=== PATIENT | male | born 1940 | race Caucasian/White ===

== ENCOUNTER 2022-08-17 22:49 | Inpatient (IN) | payer MEDICARE, OTHER, SELFPAY ==
--- NOTE | ~2022-08-17 | CT_ITS ---
EXAMINATION: CT cervical spine wo con DATE: 08/18/2022 00:10 INDICATION: Neck pain. TECHNIQUE: Computed tomography (CT) of the cervical spine was performed without intravenous contrast. Automated exposure control and iterative reconstruction technique were employed. The dose-length pro duct was 397.42 mGy-cm. COMPARISON: None FINDINGS: There is 7 degrees levocurvature of cervical spine. There is 2 mm retrolisthesis of C4 on C 5. There is mild chronic height loss of T1 and T2 vertebral bodies. There is severely decreased disc height at C4-C5 and moderately decreased disc height at C5-C6. The following disc levels are specific ally discussed: C2-C3: There is no uncovertebral joint osteoarthritis. There is moderate bilateral facet joint osteoa rthritis. There is mild right neural foraminal stenosis. There is no central canal stenosis. C3-C4: There is severe bilateral uncovertebral joint osteoarthritis. There is severe right and mild l eft facet joint osteoarthritis. There is mild bilateral neural foraminal stenosis. There is mild cent ral canal stenosis. C4-C5: There is severe bilateral uncovertebral joint osteoarthritis. There is moderate bilateral face t joint osteoarthritis. There is mild right and moderate left neural foraminal stenosis. There is mil d central canal stenosis. C5-C6: There is severe right and mild left uncovertebral joint osteoarthritis. There is moderate righ t and mild left facet joint osteoarthritis. There is mild bilateral neural foraminal stenosis. There is mild central canal stenosis. C6-C7: There is mild bilateral uncovertebral joint osteoarthritis. There is moderate and mild left fa cet joint osteoarthritis. There is mild bilateral neural foraminal stenosis. There is mild central ca nal stenosis. C7-T1: There is no uncovertebral joint osteoarthritis. There is severe right and moderate left facet joint osteoarthritis. There is mild bilateral neural foraminal stenosis. There is no central canal st enosis. IMPRESSION: 1. No acute fracture. 2. Severe cervical spondylosis. Reviewed, dictated and finalized at location B.
--- NOTE | ~2022-08-17 | US_ITS ---
EXAMINATION: US venous doppler [facility] DATE: 08/18/2022 13:02 INDICATION: Lower limb edema. TECHNIQUE: Grayscale ultrasound images without and with compression and Doppler ultrasound images of the bilateral lower extremity veins were obtained. COMPARISON: None. FINDINGS: The visualized portions of right common femoral vein, profunda (deep) femoral vein, femoral vein, pop liteal vein, peroneal veins, posterior tibial veins, and greater saphenous vein outflow are patent. The visualized portions of left common femoral vein, profunda femoral vein, femoral vein, popliteal v ein, peroneal veins, posterior tibial veins, and greater saphenous vein outflow are patent. IMPRESSION: 1. No deep venous thrombosis. Reviewed, dictated and finalized at location B.
--- NOTE | ~2022-08-17 | XR_ITS ---
EXAMINATION: XR chest 1V portable DATE: 08/18/2022 01:17 INDICATION: Syncopal episode. Weakness. TECHNIQUE: frontal view of the chest was obtained. COMPARISON: None FINDINGS: The lungs are clear with no focal airspace opacities, pulmonary edema, pleural effusion or pneumothor ax. The cardiomediastinal silhouette is normal. Several old healed bilateral rib fractures. IMPRESSION: 1. No acute cardiopulmonary disease. Reviewed, dictated and finalized at location A.
--- NOTE | ~2022-08-17 | CT_ITS ---
EXAMINATION: CT brain wo con DATE: 08/18/2022 00:10 INDICATION: Syncope. Head injury. TECHNIQUE: Computed tomography (CT) of the head was performed without intravenous contrast. Sagittal and coronal reconstructions were performed. The mA was adjusted according to patient size. Iterative reconstruction technique was employed. The dose-length product was 605.33 mGy-cm. COMPARISON: None FINDINGS: Moderate-sized right parietal scalp hematoma. No fracture. Small focus of high attenuation in the lef t cerebellar hemisphere compatible for dystrophic calcification versus tiny intraparenchymal versus s ubarachnoid hemorrhage. No acute infarction or abnormal extra axial fluid collection. There is modera te scattered white matter hypoattenuation consistent with chronic small vessel ischemic disease. Symm etric prominence of the sulci consistent with moderate age-appropriate diffuse cerebral volume loss. Ventricles are normal and symmetric. No mass/mass effect. The orbits, paranasal sinuses and mastoid a ir cells are normal. 14 x 7 mm fluid attenuation subcutaneous nodule superolateral to the right orbit with fluid attenuation most likely sebaceous cyst. Intracranial calcified cerebral atherosclerosis i s noted. IMPRESSION: 1. Small focus of increased attenuation in the left cerebellar hemisphere equivocal for either dystro phic calcification versus intraparenchymal or subarachnoid hemorrhage. Findings were discussed with Aleshia Emmanuel, the nurse caring for the patient, at 8:05 AM. 2. Age-related changes including moderate diffuse volume loss and moderate scattered white matter hyp oattenuation consistent with chronic small vessel ischemic disease. Reviewed, dictated and finalized at location A. IMPRESSION: 1. Small focus of increased attenuation in the left cerebellar hemisphere equiv ocal for either dystrophic calcification versus intraparenchymal or subarachnoi d hemorrhage. Findings were discussed with Mayra Emmanuel, the nurse caring for the patient, at 8:05 AM. 2. Age-related changes including moderate diffuse volume loss and moderate scat tered white matter hypoattenuation consistent with chronic small vessel ischemi c disease.
--- NOTE | ~2022-08-17 | MR_ITS ---
EXAMINATION: MR brain/brain stem wo con DATE: 08/18/2022 12:52 INDICATION: Syncope. Left cerebellar subarachnoid hemorrhage. TECHNIQUE: Magnetic resonance imaging (MRI) of the brain and brainstem was performed without intraven ous contrast. COMPARISON: Head CT 08/18/2022 FINDINGS: There is no intracranial hemorrhage, acute infarction, or abnormal intracranial mass lesion . There are scattered areas of nonspecific increased T2-weighted signal intensity in the cerebral whi te matter. The ventricles are normal in size. The mastoid air cells are normal. The paranasal sinuses are clear. There are likely changes of ocular lens replacement surgeries. IMPRESSION: 1. No intracranial hemorrhage. 2. Moderate nonspecific cerebral white matter disease, which likely represents chronic small vessel i schemic disease. Reviewed, dictated and finalized at location B. IMPRESSION: 1. No intracranial hemorrhage. 2. Moderate nonspecific cerebral white matter disease, which likely represents chronic small vessel ischemic disease.
[2022-08-17 22:56] VITALS: BP 156/94; PULSE 123; RESP 18; TEMP 36.4; O2SAT 100
[2022-08-17 23:07] LABS: Glucose Point of Care 292 mg/dl (65-105)
--- NOTE | 2022-08-17 23:16 | ECG_ITS ---
Measurements Intervals [place] Rate: 113 P: 56 MS: 169 QRS: -49 QRSD: 129 T: 107 QT: 331 QTc: 455 Interpretive Statements SINUS TACHYCARDIA LEFT ANTERIOR FASCICULAR BLOCK [QRS AXIS <= -45, QR IN I, RS IN II] LEFT VENTRICULAR HYPERTROPHY AND ST-T CHANGE [VOLTAGE CRITERIA PLUS ST/T ABNORMALITY] POSSIBLE ANTERIOR MYOCARDIAL INFARCTION , OF INDETERMINATE AGE [30 ms Q WAVE IN V3/V4, OR R < 0.2 mV IN V4] ABNORMAL ECG NO PREVIOUS ECG AVAILABLE FOR COMPARISON Electronically Signed On 08-18-2022 14:06:37 CDT by Hollis Ahmadi M.D.
--- NOTE | 2022-08-17 23:57 | ED.GENADULT ---
HPI - General Adult General Chief complaint: Weakness Stated complaint: fall Time Seen by Provider: 08/17/22 23:22 History of Present Illness HPI narrative: 82-year-old male history of diabetes with neuropathy, hypertension, CHF, hyperlipidemia and BPH to the emergency room for evaluation of a head injury sustained from a fall after syncopal episode. Patient states he went to the kitchen to grab a late night snack, when he had a syncopal episode and fell, striking his head on the counter. According to his patient experienced positive LOC for 5 minutes. Patient was confused for several minutes following the injury. Presently patient is alert and oriented x4. Reports that he experienced a ground-level fall last week when he tripped walking into a doorway. Patient states he struck his head on the concrete then as well. Patient also complains of lower extremity edema, left greater than the right. States when he fell last week he sustained several abrasions to his lower extremities. 1 abrasion began draining purulent drainage. Left leg is erythematous and warm to the touch Related Data Allergies Allergy/AdvReac Type Severity Reaction Status Date / Time No Known Allergies Allergy Verified 08/17/22 22:55 Review of Systems Review of Systems: CONSTITUTIONAL: Denies fever, chills, or sweats. EYES: Denies visual changes, redness, or discharge. ENT: Denies rhinorrhea, congestion, sore throat, or otalgia. CARDIOVASCULAR: Denies chest pain, palpitations, or edema. RESPIRATORY: Denies cough or dyspnea. GASTROINTESTINAL: Denies abdominal pain, nausea, vomiting, or diarrhea. GENITOURINARY: Denies dysuria or hematuria. SKIN: Denies rash or itching. MUSCULOSKELETAL: Denies back pain, joint pain, or myalgia. NEUROLOGIC: Denies headache, numbness, dizziness, or weakness. PSYCHIATRIC: Denies anxiety or depression. [facility] Past Medical History Medical History (Updated 08/18/22 @ 02:43 by Hollis Woods APRN) BPH (benign prostatic hyperplasia) CHF (congestive heart failure) Diabetes type 2, uncontrolled Hyperlipidemia Hypertension Exam Narrative: GENERAL: Well-appearing, well-nourished, no physical limitations, and in no acute distress. HEAD: Normocephalic, ecchymosis in various stages of healing to the right brow EYES: Conjunctivae normal, PERRLA and EOMI. ENT: External nose normal, Nares clear, no rhinorrhea or epistaxis. Mucous membranes moist. Oropharynx without tonsillar hypertrophy exudate or other lesions. External ears normal, bilateral TMs normal bilaterally NECK: Supple. CHEST: Decreased chest breath sounds. No respiratory distress. HEART: Tachycardic with a regular rhythm. No murmur heard. Normal peripheral pulses. ABDOMEN: Soft, nontender, nondistended, normal active bowel sounds. BACK: No midline cervical/thoracic/lumbar tenderness, step-offs, bony abnormality; FROM EXTREMITIES: Normal range of motion. Bilateral lower extremity pitting edema +3/+4. LLE: Abrasion to anterior vivas, with purulent drainage. Extremity erythematous warm to touch SKIN: Warm, dry, no rash. No noted wounds NEURO: No focal deficits. Alert and oriented x3. MAEW. CN's II-XI intact bilaterally PSYCH: Cooperative. Normal mood and affect. Course Vital Signs Vital signs: Vital Signs Temperature 36.4 C L 08/17/22 22:56 Pulse Rate 123 H 08/17/22 22:56 Respiratory Rate 18 08/17/22 22:56 Blood Pressure 156/94 H 08/17/22 22:56 Pulse Oximetry 100 08/17/22 22:56 Oxygen Delivery Room Air 08/17/22 22:56 Temperature 36.4 C L 08/17/22 22:56 Pulse Rate 88 08/18/22 02:16 Respiratory Rate 20 08/18/22 02:16 Blood Pressure 157/84 H 08/18/22 02:16 Pulse Oximetry 98 08/18/22 02:16 Oxygen Delivery Room Air 08/17/22 22:56 Medical Decision Making Vital Signs Vital Signs: Vital Signs Temperature 36.4 C L 08/17/22 22:56 Pulse Rate 123 H 08/17/22 22:56 Respiratory Rate 18 08/17/22 22:56 Blood Pressure 156/9
[2022-08-18] VITALS (19 sets, daily range): BP systolic 134–196; BP diastolic 50–102; PULSE 68–130; RESP 12–20; TEMP 36.2–36.9; O2SAT 93–100; BMI 38.8
--- NOTE | 2022-08-18 | ECHO_ITS ---
Patient Info Name: Messi Smalls Age: 82 years : 1940 Gender: Male Ht: 60 in Wt: 198 lbs BSA: 2.00 m2 HR: 106 bpm BP: 138 / 77 mmHg Heart Rhythm: Sinus Rhythm Exam Date: 08/18/2022 10:31 AM Exam Location: [facility] Patient Status: Outpatient Admit Date: 08/18/2022 Staff Ordering Physician: aKlina Valdivia APRN Order Manager: Mauro Stockton RDCS, RT Attending Provider: Nancy Lawrence DO Referring Physician: Skip PARMAR; Exam Type: CA echo doppler color flow Study Info Indications R55 - Syncope and collapse Complete two-dimensional, color flow and Doppler transthoracic echocardiogram is performed. Strain analysis performed. Summary 1. Complete two-dimensional, color flow and Doppler transthoracic echocardiogram is performed. 2. Left ventricular chamber dimension is mildly enlarged. 3. Left ventricular systolic function is normal, estimated at 60-65%. 4. There is moderately increased left ventricular wall thickness. 5. Left ventricular septal wall motion is abnormal with septal motion related to bundle branch block. 6. The left ventricular diastolic function is grade I diastolic dysfunction. 7. Global longitudinal strain is abnormal at -14 %. 8. The basal inferior wall, and mid inferior wall are hypokinetic. 9. Left atrial chamber dimension is moderately enlarged. 10. There is mild mitral valve regurgitation. 11. There is mild tricuspid valve regurgitation. 12. Moderate pulmonary hypertension, estimated pulmonary arterial systolic pressure is 52 mmHg. Left Ventricle Left ventricular chamber dimension is mildly enlarged. Left ventricular systolic function is normal, estimated at 60-65%. There is moderately increased left ventricular wall thickness. Left ventricular septal wall motion is abnormal with septal motion related to bundle branch block. The left ventricular diastolic function is grade I diastolic dysfunction. E/e' 6.2 is abnormal. Global longitudinal strain is abnormal at -14 %. The basal inferior wall, and mid inferior wall are hypokinetic. All other pagan appear normal. Right Ventricle Right ventricular chamber dimension is normal. Right ventricular systolic function is normal. Left Atria Left atrial chamber dimension is moderately enlarged. Right Atria Right atrial chamber dimension is normal. Atrial Septum Intact interatrial septum visualized by color flow imaging. Aortic Valve The aortic valve is trileaflet. There is mild aortic valve sclerosis. There is no aortic valve stenosis. There is trace aortic valve regurgitation. Pulmonic Valve The pulmonic valve is normal. There is no pulmonic valve stenosis. There is trace pulmonic regurgitation. Mitral Valve The mitral valve has thickened leaflets. There is no mitral valve stenosis. There is mild mitral valve regurgitation. Tricuspid Valve The tricuspid valve leaflets are normal. There is no significant tricuspid valve stenosis. There is mild tricuspid valve regurgitation. Moderate pulmonary hypertension, estimated pulmonary arterial systolic pressure is 52 mmHg. Pericardium/Pleural The pericardium appears normal. There is trivial pericardial effusion. Inferior Vena Cava Normal inferior vena cava with <50% collapse upon inspiration consistent with elevated right atrial pressure, 10 mmHg. Aorta The aortic root size at the sinus of Valsalva is normal. Left Ventricular Outflow Tract
[2022-08-18 00:24] LABS: Basophils Absolute Auto 0.1 K/mm3 (0.0-0.1); Basophils Percent Auto 0.5 % (0.2-1.2); Eosinophils Absolute Auto 0.1 K/mm3 (0-0.3); Eosinophils Percent Auto 0.8 % (0-4.4); Hematocrit 31.5 % (42.0-52.0); Hemoglobin 10.9 g/dL (14.0-18.0); Immature Granulocyte Percent A 1.6 % (0-0.5); Lymphocytes Absolute Auto 1.04 K/mm3 (0.9-3.2); Lymphocytes Percent Auto 8.1 % (18.3-44.2); Mean Corpuscular HGB Conc 34.6 g/dl (32-36); Mean Corpuscular Hemoglobin 29.6 pg (26-34); Mean Corpuscular Volume 85.6 fl (80-100); Mean Platelet Volume 10.6 fl (7.4-10.4); Monocytes Percent Auto 7.5 % (2.6-8.5); Neutrophils Absolute Auto 10.4 K/mm3 (1.3-6.7); Neutrophils Percent Auto 81.5 % (45.5-73.1); Platelet Count Result 278 k/mm3 (150-375); Red Blood Count 3.68 M/mm3 (4.6-6.20); Red Cell Distribution Width 12.8 % (11.5-14.5); White Blood Count 12.8 K/mm3 (4.5-10.0)
[2022-08-18 00:32] LABS: INR 1.2; Prothrombin Time 14.5 Seconds (11.1-14.7)
[2022-08-18 00:33] LABS: Partial Thromboplastin Time 37.6 SECONDS (22.3-36.8)
[2022-08-18 00:40] LABS: Alanine Aminotransferase 17 U/L (6-50); Albumin Level 3.7 g/dL (3.5-5.1); Alkaline Phosphatase 97 U/L (38-126); Anion Gap 11 mmol/L (8-16); Aspartate Amino Transferase 17 U/L (17-59); Bilirubin,Total 0.8 mg/dL (0.2-1.3); Blood Urea Nitrogen 26 mg/dL (9-20); Calcium 9.3 mg/dL (8.4-10.2); Carbon Dioxide 21 mmol/L (22-30); Chloride 104 mmol/L (98-107); Estimated CRCL calculation 44 ml/min; Estimated Glomerular Filt Rate > 60; Glucose 318 mg/dL (65-110); Potassium 4.5 mmol/L (3.4-5.0); Sodium 136 mmol/L (137-145)
[2022-08-18 00:45] LABS: NT Pro B Type Natriuretic Pept 2730 pg/mL (5-100)
[2022-08-18 01:06] LABS: Troponin I 0.037 ng/mL (0.000-0.034)
[2022-08-18] MEDS: METOPROLOL TARTRATE INJ 5 MG/5 ML VIAL IV PUSH ×2 (01:06→17:39)
[2022-08-18] MEDS: FUROSEMIDE INJ 40 MG/4 ML VIAL IV PUSH (01:06)
--- NOTE | 2022-08-18 01:16 | ECG_ITS ---
Measurements Intervals [place] Rate: 91 P: 77 NV: 174 QRS: -45 QRSD: 138 T: 65 QT: 365 QTc: 451 Interpretive Statements SINUS RHYTHM INTRAVENTRICULAR CONDUCTION DELAY [130+ ms QRS DURATION] LEFT VENTRICULAR HYPERTROPHY POSSIBLE SEPTAL MYOCARDIAL INFARCTION , OF INDETERMINATE AGE [30 ms Q WAVE IN V1/V2] LEFT ANTERIOR FASCICULAR BLOCK ABNORMAL ECG COMPARED TO ECG 08/17/2022 23:18:06 SINUS RHYTHM NOW PRESENT INTRAVENTRICULAR CONDUCTION DELAY NOW PRESENT Electronically Signed On 08-18-2022 14:07:54 CDT by Hollis Ahmadi M.D.
--- NOTE | 2022-08-18 01:17 | PC.NURSE ---
called [facility] for transfer. No telebeds available.
[2022-08-18] MEDS: INSULIN HUMAN REGULAR (*BKC) 100 UNITS/ML 6 UNITS SUB-Q (01:22)
[2022-08-18 01:40] LABS: Lactic Acid Reflex 1.4 mmol/L (0.7-2.0)
[2022-08-18 02:06] LABS: SARS-CoV-2 RNA PCR Negative
[2022-08-18] MEDS: hydrALAZINE HCL 20 MG/ML VIAL 10 MG IV PUSH (02:26)
[2022-08-18 02:57] LABS: Add Urine Microscopic? YES; Appearance Urine Clear (Clear); Bilirubin Urine Negative (Negative); Blood Urine Negative (Negative); Color Urine Yellow (Yellow); Glucose Urine UA 3+ mg/dL (Negative); Ketones Urine Trace mg/dL (Negative); Leukocyte Esterase Ur Negative LEU/UL (Negative); Nitrate Urine Negative (Negative); Protein Urine 2+ mg/dL (Negative); RBC Urine 0-2 /hpf (0-2); Specific Grav Ur 1.012 (1.001-1.035); Squamous Epithelial Cell Urine Rare /hpf (Few); Urobilinogen Urine Negative mg/dL (<2.0); WBC Urine 0-3 /hpf
[2022-08-18 04:14] LABS: Troponin I 0.043 ng/mL (0.000-0.034)
--- NOTE | 2022-08-18 04:14 | ADMGEN ---
This patient, Messi Smalls, was admitted to IMU Room 206-02 at 0414. Patient/family oriented to hospital policies and general routines including ID bracelet, bed and alarms, visiting hours, pain management, procedures, bathroom and other care routines, personal items, smoking policy, room service/diet, and visiting hours. Information on how to activate the Rapid Response Team has been discussed. Patient/Family are encouraged to report perceived risks to care and to ask questions if they do not understand what they are told or what they should do.
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
[2022-08-18 08:40] LABS: Hemoglobin A1C 7.3 % (<5.7)
[2022-08-18 09:16] LABS: Glucose Point of Care 209 mg/dl (65-105)
[2022-08-18 09:32] LABS: Cholesterol 115 mg/dL (0-200); HDL Direct 33 mg/dL; Triglycerides 97 mg/dL (<150)
[2022-08-18 09:43] LABS: LDL Cholesterol Direct 57 mg/dL
[2022-08-18] MEDS: ROSUVASTATIN 10 MG TABLET 20 MG PO (09:48)
[2022-08-18] MEDS: VALSARTAN 160 MG TABLET 320 MG PO (09:48)
[2022-08-18] MEDS: metroNIDAZOLE 250 MG TABLET 500 MG PO ×3 (09:48→21:18)
[2022-08-18] MEDS: ASCORBIC ACID 500 MG TABLET PO (09:48)
[2022-08-18] MEDS: busPIRone HCL 10 MG TABLET PO ×2 (09:49→16:15)
[2022-08-18] MEDS: amLODIPine BESYLATE 5 MG TABLET PO (09:50)
[2022-08-18] MEDS: INSULIN ASPART (*BKC) 100 UNITS/ML SUB-Q ×3 (10:01→17:30)
--- NOTE | 2022-08-18 10:53 | PM.CNGS ---
Assessment and Plan Assessment and plan (1) Cellulitis and abscess of leg: Code(s): L03.119 - Cellulitis of unspecified part of limb; L02.419 - Cutaneous abscess of limb, unspecified Status: Acute Assessment and Plan: This is the reason for our consultation. Left lower leg cellulitis and left lower leg wound. Wound care was consulted earlier today and evaluated the patient. They were able to express some clot material concerning for possibly a small hematoma in this area. The overlying skin is a dark black eschar and there was reportedly some purulent drainage expressed this morning and cultured. This could be the source of his cellulitis, although the wound is very small. Discussed treatment options with the patient and recommended that we proceed with a bedside incision and drainage of the abscess under local anesthetic with possible debridement of the eschar. If there is any remaining clot, this can be evacuated as well. If there is purulent drainage during the procedure, then we will plan to get a deeper wound culture. Description of the procedure, risks, benefits, alternatives, and expected wound care were discussed with the patient in detail. He agrees to proceed. (2) Sepsis: Qualifiers: Sepsis acute organ dysfunction status: without acute organ dysfunction Sepsis type: sepsis due to unspecified organism Qualified Code(s): A41.9 - Sepsis, unspecified organism Code(s): A41.9 - Sepsis, unspecified organism Status: Acute Assessment and Plan: Criteria met on admission with leukocytosis, tachycardia, and known source of infection. Could be related to the left lower leg cellulitis. Continue broad-spectrum IV antibiotics. No blood cx drawn prior to starting IV antibiotics. Hospitalist plans to get blood cx if he becomes febrile. See plan above. (3) Elevated troponin: Code(s): R77.8 - Other specified abnormalities of plasma proteins Status: Acute (4) Syncope and collapse: Code(s): R55 - Syncope and collapse Status: Acute (5) Diabetes type 2, uncontrolled: Qualifiers: Glycemic state: with hyperglycemia Qualified Code(s): E11.65 - Type 2 diabetes mellitus with hyperglycemia Status: Acute Assessment and Plan: Will need adequate glycemic control for wound healing. Management per Hospitalist. (6) CHF (congestive heart failure): Code(s): I50.9 - Heart failure, unspecified Status: Acute (7) BPH (benign prostatic hyperplasia): Qualifiers: Lower urinary tract symptom presence: symptoms absent Qualified Code(s): N40.0 - Benign prostatic hyperplasia without lower urinary tract symptoms Code(s): N40.0 - Benign prostatic hyperplasia without lower urinary tract symptoms Status: Chronic (8) Hypertension: Qualifiers: Hypertension type: primary hypertension Qualified Code(s): I10 - Essential (primary) hypertension Code(s): I10 - Essential (primary) hypertension Status: Chronic (9) Hyperlipidemia: Qualifiers: Hyperlipidemia type: mixed hyperlipidemia Qualified Code(s): E78.2 - Mixed hyperlipidemia Code(s): E78.5 - Hyperlipidemia, unspecified Status: Chronic (10) Obesity (BMI 30-39.9): Code(s): E66.9 - Obesity, unspecified Status: Acute Plan I have discussed the patient's case and plan of care with Dr. Reich. Thank you for allowing us to see the patient in consultation and we will continue to follow along with you. History of Present Illness Consult details Consult date: 08/18/22 Reason for consult: other (Left lower leg wound) Requesting physician: Kalina Valdivia, MELISSA Narrative: This is an 82-year-old man with type 2 diabetes mellitus, hypertension, CHF, hyperlipidemia, and BPH. He presented to the ER after a syncopal episode at home. He has a history of multiple falls in the past. He reports [facility] 11 days ago [facility]
[2022-08-18 11:35] LABS: Vitamin D 25 Hydroxy 26.1 ng/mL
[2022-08-18 12:35] LABS: Glucose Point of Care 339 mg/dl (65-105)
--- NOTE | 2022-08-18 16:01 | P.OP_ITS ---
Procedure Note - Detailed Date of Procedure 08/18/22 Pre-op Diagnosis Left lower leg abscess Post-op Diagnosis Same Procedure Performed Incision and sharp excisional debridement of left lower leg wound including skin and subcutaneous tissue, measuring 1 cm x 1 cm x 1 cm Surgeon ALIZA Hewitt Biology Department Chair MAURA Castillo student Anesthesia Local (2% lidocaine with epi) Indications Left lower leg abscess with overlying eschar and surrounding cellulitis Findings After making an incision over the fluctuant area and debriding the overlying eschar, there was no significant purulent drainage noted, but a cavity where likely the previous blood clot that was expressed this morning was lying. No further pockets of pus or significant tracking noted. Description of Procedure The patient was placed in the supine position in the bed. His left leg was flexed and laid laterally on the side for better visualization of the medial wound. Following this, sterile prep was carried out over the wound with iodine swabs. The area was draped and local anesthetic with 2% lidocaine with epinephrine was infiltrated directly over the area of the suspected abscess formation and the edges of the eschar. I used a scissors to extend the opening in the center of the eschar. There was no purulent drainage flowing. I then used a pickup and scissors to carry out debridement of the black eschar down to subcutaneous tissue. After this was completely excised, there was a remaining circular open wound that had about 2 cm of undermining distally down the leg. With probing, there were no pus pockets or any purulent drainage noted after debridement. Therefore, no additional wound culture was taken. With inspection of the wound, there was no bleeding or oozing. I then measured the area that was debrided, which was 1 cm x 1 cm x 1 cm. No deeper necrotic tissue noted. I then packed the wound with 1 iodoform packing that was cut in half in width to fit the wound. The nurse was unable to get small packing at this time. We then covered with 4x4 gauze and medipore tape. Estimated Blood Loss 0 Drains No Packing Yes Pathology None sent Complications No immediate complications Condition Stable Disposition No change [facility] Billing Surgery - Charge Forward: Surgery Billing
[2022-08-18 16:05] LABS: Procalcitonin 0.2 ng/mL
[2022-08-18 17:26] LABS: Glucose Point of Care 266 mg/dl (65-105)
[2022-08-18 20:37] LABS: Glucose Point of Care 305 mg/dl (65-105)
[2022-08-18] MEDS: HEPARIN SODIUM 5,000 UNITS/ML VIAL 5000 UNITS SUB-Q (21:17)
[2022-08-18] MEDS: INSULIN GLARGINE (*BKC) 100 UNITS/ML 10 UNITS SUB-Q (21:17)
[2022-08-18] MEDS: FINASTERIDE 5 MG TABLET PO (21:18)
[2022-08-18] MEDS: TAMSULOSIN HCL 0.4 MG CAPSULE PO (21:18)
[2022-08-19] VITALS (14 sets, daily range): BP systolic 127–171; BP diastolic 69–86; PULSE 80–110; RESP 17–22; TEMP 36.1–37.5; O2SAT 95–100
[2022-08-19] MEDS: METOPROLOL TARTRATE INJ 5 MG/5 ML VIAL IV PUSH (03:53)
[2022-08-19] MEDS: metroNIDAZOLE 250 MG TABLET 500 MG PO ×3 (05:27→21:45)
[2022-08-19 05:42] LABS: Basophils Absolute Auto 0.1 K/mm3 (0.0-0.1); Basophils Percent Auto 0.6 % (0.2-1.2); Eosinophils Absolute Auto 0.3 K/mm3 (0-0.3); Eosinophils Percent Auto 3.5 % (0-4.4); Hematocrit 28.5 % (42.0-52.0); Hemoglobin 9.9 g/dL (14.0-18.0); Immature Granulocyte Absolute 0.06 K/mm3 (0.00-0.031); Immature Granulocyte Percent A 0.7 % (0-0.5); Lymphocytes Absolute Auto 0.93 K/mm3 (0.9-3.2); Lymphocytes Percent Auto 10.8 % (18.3-44.2); Mean Corpuscular HGB Conc 34.7 g/dl (32-36); Mean Corpuscular Hemoglobin 29.2 pg (26-34); Mean Corpuscular Volume 84.1 fl (80-100); Mean Platelet Volume 10.6 fl (7.4-10.4); Monocytes Absolute Auto 0.7 K/mm3 (0.1-0.6); Neutrophils Absolute Auto 6.6 K/mm3 (1.3-6.7); Neutrophils Percent Auto 76.4 % (45.5-73.1); Platelet Count Result 243 k/mm3 (150-375); Red Blood Count 3.39 M/mm3 (4.6-6.20); Red Cell Distribution Width 12.7 % (11.5-14.5); White Blood Count 8.6 K/mm3 (4.5-10.0)
[2022-08-19 05:56] LABS: Anion Gap 7 mmol/L (8-16); Blood Urea Nitrogen 22 mg/dL (9-20); Calcium 8.8 mg/dL (8.4-10.2); Carbon Dioxide 22 mmol/L (22-30); Chloride 101 mmol/L (98-107); Estimated CRCL calculation 52 ml/min; Estimated Glomerular Filt Rate > 60; Glucose 255 mg/dL (65-110); Potassium 3.6 mmol/L (3.4-5.0); Sodium 130 mmol/L (137-145)
[2022-08-19 06:59] LABS: Folic Acid 9.1 ng/mL (2.76->20)
[2022-08-19 08:25] LABS: Glucose Point of Care 255 mg/dl (65-105)
[2022-08-19] MEDS: INSULIN ASPART (*BKC) 100 UNITS/ML SUB-Q ×3 (08:48→17:03)
[2022-08-19] MEDS: ROSUVASTATIN 10 MG TABLET 20 MG PO (08:49)
[2022-08-19] MEDS: HEPARIN SODIUM 5,000 UNITS/ML VIAL 5000 UNITS SUB-Q ×2 (08:49→21:45)
[2022-08-19] MEDS: VALSARTAN 160 MG TABLET 320 MG PO (08:49)
[2022-08-19] MEDS: ASCORBIC ACID 500 MG TABLET PO (08:49)
[2022-08-19] MEDS: busPIRone HCL 10 MG TABLET PO ×2 (08:49→17:03)
[2022-08-19] MEDS: ASPIRIN 81 MG ENTERIC TABLET PO (08:49)
[2022-08-19] MEDS: amLODIPine BESYLATE 5 MG TABLET PO (08:49)
[2022-08-19 12:20] LABS: Glucose Point of Care 350 mg/dl (65-105)
--- NOTE | 2022-08-19 14:15 | PM.IMPN ---
Progress Note: A&P Assessment and Plan (1) Syncope and collapse: Code(s): R55 - Syncope and collapse Status: Acute Assessment and Plan: Patient presented to the ED following a syncopal episode with head injury and LOC of 5 minutes at least. He had prior right frontal/temporal hematoma from previous fall. Telemetry with no arrhythmia Orthostatic vitals borderline positive- hold diuretics. Likely due to orthostasis TTE 08/18/2022 with EF 60-65% chronic left bundle branch block grade 1 diastolic dysfunction moderate pulmonary hypertension CT head with questionable left cerebellar SAH. MRI brain negative for intracranial hemorrhage. Neuro checks Q4 hours. TSH 2.640 Vitamin D 25-OH 26.1 PT/OT to evaluate (2) Sepsis: Qualifiers: Sepsis type: sepsis due to unspecified organism Sepsis acute organ dysfunction status: without acute organ dysfunction Qualified Code(s): A41.9 - Sepsis, unspecified organism Code(s): A41.9 - Sepsis, unspecified organism Status: Acute Assessment and Plan: HR 123 bpm, WBC 1.28 with bandemia, increased warmth, redness, swelling, wound with purulent discharge. Lactic acid 1.4. UA negative. CXR negative. ED concerns for volume overload and given 40 mg IV lasix x1. Hold IV resuscitation for now. Monitor hemodynamics. SBP 180s. Continue antibiotics for cellulitis as below. On IV vancomycin and IV cefepime and metronidazole Check procalcitonin. Blood cultures not drawn in ED and IV antibiotics already given. Order blood cultures x2 if temp>100.5F. (3) Cellulitis and abscess of leg: Code(s): L03.119 - Cellulitis of unspecified part of limb; L02.419 - Cutaneous abscess of limb, unspecified Status: Acute Assessment and Plan: LLE with increased edema, redness, hot to touch, medial area below knee with purulent discharge. Wound RN consulted and appreciate recommendations. General surgery consulted for evaluation for bedside I&D and appreciate assistance. Start broad-spectrum antibiotics- Cefepime IV 2 grams Q12, Vancomycin pharmacy dosed, metronidazole 500 mg PO Q8 hours. Topical mupirocin ointment daily per wound care. Wound culture with Staph aureus moderate growth sensitivity pending Venous doppler negative for DVT (4) Diabetes type 2, uncontrolled: Qualifiers: Glycemic state: with hyperglycemia Qualified Code(s): E11.65 - Type 2 diabetes mellitus with hyperglycemia Status: Acute Assessment and Plan: Blood glucose 318 in ED. He reports taking his oral antidiabetic medications prior to admission. Home glucose reported to be 140 to 160s typically. check A1c Accu-checks AC/HS with moderate sliding scale and hypoglycemia protocol Hold oral metformin and glipizide Start lantus 10 units at HS while inpatient. Goal glucose<200 mg/dL for wound healing. H/O neuropathy - check B12 level. (5) Elevated troponin: Code(s): R77.8 - Other specified abnormalities of plasma proteins Status: Acute Assessment and Plan: Troponin 0.027, 0.043, 0.060. No c/o chest pain. +syncope prior to admission. EKG with sinus tachycardia left anterior fascicular block, T-wave inversion 1 and aVL. Check Echocardiogram Troponin elevation is minimal and likely secondary to demand ischemia from sepsis and tachycardia. Monitor telemetry. Resume aspirin as MRI brain negative for acute ICH Consult cardiology if patient develops chest pain, arrhythmia or echo is abnormal. Obtain outpatient cardiology records. (6) Hypertension: Qualifiers: Hypertension type: primary hypertension Qualified Code(s): I10 - Essential (primary) hypertension Code(s): I10 - Essential (primary) hypertension Status: Chronic Assessment and Plan: Chronic, stable. continue amlodipine and valsartan at home doses. PRN metoprolol for sustained HR>120, SBP>160 or DBP>110 (7) BPH (benign prostatic hyperplasia):
[2022-08-19 16:18] LABS: Glucose Point of Care 325 mg/dl (65-105)
[2022-08-19] MEDS: INSULIN ASPART (*BKC) 100 UNITS/ML 6 UNITS SUB-Q (17:04)
--- NOTE | 2022-08-19 17:07 | PM.PNGS ---
Progress Note: A&P Assessment and Plan (1) Syncope and collapse: Code(s): R55 - Syncope and collapse Status: Acute Assessment and Plan: Patient presented to the ED following a syncopal episode with head injury and LOC of 5 minutes at least. He had prior right frontal/temporal hematoma from previous fall. Telemetry with no arrhythmia Orthostatic vitals borderline positive- hold diuretics. Likely due to orthostasis TTE 08/18/2022 with EF 60-65% chronic left bundle branch block grade 1 diastolic dysfunction moderate pulmonary hypertension CT head with questionable left cerebellar SAH. MRI brain negative for intracranial hemorrhage. (2) Sepsis: Qualifiers: Sepsis acute organ dysfunction status: without acute organ dysfunction Sepsis type: sepsis due to unspecified organism Qualified Code(s): A41.9 - Sepsis, unspecified organism Code(s): A41.9 - Sepsis, unspecified organism Status: Acute Assessment and Plan: . (3) Cellulitis and abscess of leg: Code(s): L03.119 - Cellulitis of unspecified part of limb; L02.419 - Cutaneous abscess of limb, unspecified Status: Acute Assessment and Plan: LLE with increased edema, redness, hot to touch, medial area below knee with purulent discharge. Wound RN consulted and appreciate recommendations. General surgery consulted for evaluation for bedside I&D and appreciate assistance. Start broad-spectrum antibiotics- Cefepime IV 2 grams Q12, Vancomycin pharmacy dosed, metronidazole 500 mg PO Q8 hours. Topical mupirocin ointment daily per wound care. Wound culture with Staph aureus moderate growth sensitivity pending Venous doppler negative for DVT Will order SCD hose see if patient can tolerate having this on the leg. This may help push some edema/venous flow up the leg while he is in bed. Also elevate foot of bed. (4) Diabetes type 2, uncontrolled: Qualifiers: Glycemic state: with hyperglycemia Qualified Code(s): E11.65 - Type 2 diabetes mellitus with hyperglycemia Status: Acute (5) Elevated troponin: Code(s): R77.8 - Other specified abnormalities of plasma proteins Status: Acute Assessment and Plan: Troponin 0.027, 0.043, 0.060. No c/o chest pain. +syncope prior to admission. EKG with sinus tachycardia left anterior fascicular block, T-wave inversion 1 and aVL. Check Echocardiogram Troponin elevation is minimal and likely secondary to demand ischemia from sepsis and tachycardia. Monitor telemetry. (6) Hypertension: Qualifiers: Hypertension type: primary hypertension Qualified Code(s): I10 - Essential (primary) hypertension Code(s): I10 - Essential (primary) hypertension Status: Chronic Assessment and Plan: Chronic, stable. (7) BPH (benign prostatic hyperplasia): Qualifiers: Lower urinary tract symptom presence: symptoms absent Qualified Code(s): N40.0 - Benign prostatic hyperplasia without lower urinary tract symptoms Code(s): N40.0 - Benign prostatic hyperplasia without lower urinary tract symptoms Status: Chronic Assessment and Plan: chronic, stable. continue finasteride and tamsulosin Monitor for urinary retention. (8) Hyperlipidemia: Qualifiers: Hyperlipidemia type: mixed hyperlipidemia Qualified Code(s): E78.2 - Mixed hyperlipidemia Code(s): E78.5 - Hyperlipidemia, unspecified Status: Chronic Assessment and Plan: chronic, stable Plan CODE STATUS: FULL CODE Disposition: PT OT to see to evaluate Subjective Subjective Date/Time Seen: 08/19/22 17:07 Review of Systems Review of Systems: All systems reviewed & are unremarkable except as noted in HPI and below Constitutional: Constitutional: Reports as per HPI, Reports no additional constitutional complaints, Denies chills, Denies fatigue, Denies fever(s), Denies headache(s) and Denies poor
--- NOTE | 2022-08-19 17:35 | PC.NURSE ---
Received from IMU via bed. Family at bedside. Saini draining yellow urine.
[2022-08-19 19:26] LABS: Glucose Point of Care 308 mg/dl (65-105)
[2022-08-19] MEDS: INSULIN GLARGINE (*BKC) 100 UNITS/ML 18 UNITS SUB-Q (21:43)
[2022-08-19] MEDS: FINASTERIDE 5 MG TABLET PO (21:45)
[2022-08-19] MEDS: TAMSULOSIN HCL 0.4 MG CAPSULE PO (21:45)
--- NOTE | 2022-08-19 22:16 | PC.NURSE ---
Pt was woken up for night time medications. Pt is confused at this time and states that he wants to go home in 2 hours. Pt re-oriented to time and agrees to wait until morning to be discharged. Pt states he does not want to be bothered and wants to sleep. Pt refused cefepime tonight. Pt educated on IV ABX.
[2022-08-20 04:00] VITALS: BP 162/81; PULSE 99; RESP 18; TEMP 36.9; O2SAT 95
[2022-08-20] MEDS: metroNIDAZOLE 250 MG TABLET 500 MG PO (05:49)
[2022-08-20 06:33] LABS: Basophils Absolute Auto 0.1 K/mm3 (0.0-0.1); Basophils Percent Auto 0.5 % (0.2-1.2); Eosinophils Absolute Auto 0.3 K/mm3 (0-0.3); Hematocrit 27.8 % (42.0-52.0); Hemoglobin 9.8 g/dL (14.0-18.0); Lymphocytes Absolute Auto 0.92 K/mm3 (0.9-3.2); Lymphocytes Percent Auto 9.2 % (18.3-44.2); Mean Corpuscular HGB Conc 35.3 g/dl (32-36); Mean Corpuscular Hemoglobin 29.5 pg (26-34); Mean Corpuscular Volume 83.7 fl (80-100); Mean Platelet Volume 10.2 fl (7.4-10.4); Monocytes Absolute Auto 0.7 K/mm3 (0.1-0.6); Monocytes Percent Auto 7.4 % (2.6-8.5); Neutrophils Absolute Auto 7.9 K/mm3 (1.3-6.7); Neutrophils Percent Auto 78.9 % (45.5-73.1); Platelet Count Result 254 k/mm3 (150-375); Red Blood Count 3.32 M/mm3 (4.6-6.20); Red Cell Distribution Width 12.7 % (11.5-14.5)
[2022-08-20 06:49] LABS: INR 1.3; Prothrombin Time 15.6 Seconds (11.1-14.7)
[2022-08-20 06:50] LABS: Partial Thromboplastin Time 33.3 SECONDS (22.3-36.8)
[2022-08-20 07:00] LABS: Anion Gap 8 mmol/L (8-16); Blood Urea Nitrogen 29 mg/dL (9-20); Calcium 8.7 mg/dL (8.4-10.2); Carbon Dioxide 23 mmol/L (22-30); Chloride 102 mmol/L (98-107); Estimated CRCL calculation 33 ml/min; Estimated Glomerular Filt Rate 45; Glucose 203 mg/dL (65-110); Sodium 133 mmol/L (137-145)
[2022-08-20 08:00] VITALS: BP 157/76; PULSE 93; RESP 16; TEMP 36.6; O2SAT 96
[2022-08-20 08:07] LABS: Glucose Point of Care 216 mg/dl (65-105)
[2022-08-20] MEDS: INSULIN ASPART (*BKC) 100 UNITS/ML SUB-Q ×3 (08:27→17:44)
[2022-08-20] MEDS: INSULIN ASPART (*BKC) 100 UNITS/ML 10 UNITS SUB-Q ×3 (08:27→17:44)
[2022-08-20] MEDS: ASCORBIC ACID 500 MG TABLET PO (08:29)
[2022-08-20] MEDS: HEPARIN SODIUM 5,000 UNITS/ML VIAL 5000 UNITS SUB-Q ×2 (08:29→20:48)
[2022-08-20] MEDS: amLODIPine BESYLATE 5 MG TABLET PO (08:29)
[2022-08-20] MEDS: busPIRone HCL 10 MG TABLET PO ×2 (08:29→17:43)
[2022-08-20] MEDS: ROSUVASTATIN 10 MG TABLET 20 MG PO (08:29)
[2022-08-20] MEDS: ASPIRIN 81 MG ENTERIC TABLET PO (08:37)
[2022-08-20 09:01] LABS: Vancomycin Trough 8.8 ug/mL (10.0-20.0)
[2022-08-20 11:40] LABS: Glucose Point of Care 250 mg/dl (65-105)
[2022-08-20 12:00] VITALS: BP 117/86; PULSE 96; RESP 22; TEMP 36.3; O2SAT 97
--- NOTE | 2022-08-20 14:45 | P.PNIM_ITS ---
Progress Note: A&P Assessment and Plan (1) Syncope and collapse: Code(s): R55 - Syncope and collapse Status: Acute Assessment and Plan: Patient presented to the ED following a syncopal episode with head injury and LOC of 5 minutes at least. He had prior right frontal/temporal hematoma from previous fall. Telemetry with no arrhythmia Orthostatic vitals borderline positive- hold diuretics. Likely due to or thostasis TTE 08/18/2022 with EF 60-65% chronic left bundle branch block grade 1 diastolic dysfunction moderate pulmonary hypertension CT head with questionable left cerebellar SAH. MRI brain negative for intracranial hemorrhage. Neuro checks Q4 hours. TSH 2.640 Vitamin D 25-OH 26.1 PT/OT to evaluate. Patient lives with spouse. (2) Sepsis: Qualifiers: Sepsis type: sepsis due to unspecified organism Sepsis acute organ dysfunction status: without acute organ dysfunction Qualified Code(s): A41.9 - Sepsis, unspecified organism Code(s): A41.9 - Sepsis, unspecified organism Status: Acute Assessment and Plan: HR 123 bpm, WBC 1.28 with bandemia, increased warmth, redness, swelling, wound with purulent discharge. Lactic acid 1.4. UA negative. CXR negative. ED concerns for volume overload and given 40 mg IV lasix x1. Hold IV resuscitation for now. Monitor hemodynamics. SBP 180s. Continue antibiotics for cellulitis as below. On IV vancomycin and IV cefepime and metronidazole. Discussed with the ED pharmacist. Will stop metronidazole. Wound culture is growing Staph aureus Came back as MSSA. With switch antibiotics to Ancef Procalcitonin 0.2 Blood cultures not drawn in ED and IV antibiotics already given. Order blood cultures x2 if temp>100.5F. (3) Cellulitis and abscess of leg: Code(s): L03.119 - Cellulitis of unspecified part of limb; L02.419 - Cutaneous abscess of limb, unspecified Status: Acute Assessment and Plan: LLE with increased edema, redness, hot to touch, medial area below knee with purulent discharge. Wound RN consulted and appreciate recommendations. General surgery consulted for evaluation for bedside I&D and appreciate assistance. Start broad-spectrum antibiotics- Cefepime IV 2 grams Q12, Vancomycin pharmacy dosed, metronidazole 500 mg PO Q8 hours. was switched to Ancef Topical mupirocin ointment daily per wound care. Wound culture with Staph aureus moderate growth sensitivity which grew as MSSA. Antibiotic change as delineated above Venous doppler negative for DVT (4) Diabetes type 2, uncontrolled: Qualifiers: Glycemic state: with hyperglycemia Qualified Code(s): E11.65 - Type 2 diabetes mellitus with hyperglycemia Status: Acute Assessment and Plan: Blood glucose 318 in ED. He reports taking his oral antidiabetic medications prior to admission. Home glucose reported to be 140 to 160s typically. check A1c Accu-checks AC/HS with moderate sliding scale and hypoglycemia protocol Hold oral metformin and glipizide Start lantus 10 units at HS while inpatient. Goal glucose<200 mg/dL for wound healing. H/O neuropathy - check B12 level. (5) Elevated troponin: Code(s): R77.8 - Other specified abnormalities of plasma proteins Status: Acute Assessment and Plan: Troponin 0.027, 0.043, 0.060. No c/o chest pain. +syncope prior to admission. EKG with sinus tachycardia left anterior fascicular block, T-wave inversion 1 and aVL. Check Echocardiogram Troponin elevation is minimal and likely secondary to demand ischemia from sepsis and tachycardia. Monitor telemetry.
[2022-08-20 15:07] LABS: Anion Gap 12 mmol/L (8-16); Blood Urea Nitrogen 34 mg/dL (9-20); Calcium 8.7 mg/dL (8.4-10.2); Carbon Dioxide 22 mmol/L (22-30); Chloride 100 mmol/L (98-107); Estimated CRCL calculation 35 ml/min; Estimated Glomerular Filt Rate 49; Glucose 252 mg/dL (65-110); Potassium 4.5 mmol/L (3.4-5.0); Sodium 134 mmol/L (137-145)
[2022-08-20] MEDS: SODIUM CHLORIDE 0.9% IV 250 ML 100 ML IV CONT (15:45)
[2022-08-20 16:00] VITALS: BP 127/75; PULSE 106; RESP 16; TEMP 36.4; O2SAT 98
[2022-08-20 16:36] LABS: Glucose Point of Care 222 mg/dl (65-105)
[2022-08-20 20:00] VITALS: BP 143/70; PULSE 106; PULSE 95; RESP 16; RESP 18; TEMP 37.7; O2SAT 98
[2022-08-20] MEDS: INSULIN GLARGINE (*BKC) 100 UNITS/ML 24 UNITS SUB-Q (20:46)
[2022-08-20] MEDS: ceFAZolin 2 GM/D5W 50 ML 2 GM/50 ML BAG IVPB (20:47)
[2022-08-20] MEDS: TAMSULOSIN HCL 0.4 MG CAPSULE PO (20:48)
[2022-08-20] MEDS: FINASTERIDE 5 MG TABLET PO (20:49)
--- NOTE | 2022-08-20 22:09 | PM.PNGS ---
Progress Note: A&P Assessment and Plan (1) Cellulitis and abscess of leg: Code(s): L03.119 - Cellulitis of unspecified part of limb; L02.419 - Cutaneous abscess of limb, unspecified Status: Acute Assessment and Plan: Culture returned today showing MSSA. Agree with changing antibiotics to Ancef. Topical mupirocin ointment daily per wound care with packing with 1/4 Nu guaze Wound culture with Staph aureus moderate growth Venous doppler negative for DVT Have ordered SCD hose see if patient can tolerate having this on the leg. This may help push some edema/venous flow up the leg while he is in bed. Also elevate foot of bed. Eventually patient will need good set of compression hose. Subjective Subjective Date/Time Seen: 08/20/22 08:09 Patient reports: feels better Interval history: Patient states SCD hose did not give pain to his leg on the left below the knee. Review of Systems Review of Systems: All systems reviewed & are unremarkable except as noted in HPI and below Constitutional: Constitutional: Reports as per HPI, Reports no additional constitutional complaints, Denies chills, Denies fatigue, Denies fever(s), Denies headache(s) and Denies poor appetite Eyes: Eyes: Reports no additional eye complaints ENT: Reports system reviewed and no additional complaints, except as documented and Reports Normal hearing present Cardiovascular: Cardiovascular: Reports no additional cardiovascular complaints, Denies chest pain and Reports leg edema (chronic, hx CHF) Respiratory: Respiratory: Reports no additional respiratory complaints, Denies cough and Denies dyspnea Gastrointestinal: Gastrointestinal: Reports no additional gastrointestinal complaints, Denies abdominal pain, Denies change in bowel habits, Denies constipation, Denies diarrhea, Denies nausea and Denies vomiting Genitourinary: Genitourinary: Reports no additional male genitourinary complaints and Denies dysuria Musculoskeletal: Musculoskeletal: Reports no additional musculoskeletal complaints Integumentary/Breasts: Skin/Breast: Reports system reviewed and no additional complaints, except as docu and Reports as per HPI Neurologic: Reports system reviewed and no additional complaints, except as documented, Denies dizziness, Denies focal weakness, Denies numbness and Denies tingling Exam Skin: Other: Exam limited to lower extremities below the knee. This AM I removed the dressing on the medial side of his left leg and inspected his wound . I removed the SCD hose from the left leg. It had a gauze and tape dressing on it. I removed the packing from the wound. There is still slight amount of black eschar under a edge of this wound that is about 2.5 cm in diameter and approximately 1 cm deep. There is granulating tissue within the wound. His open nicely and there is not a lot of drainage. Patient has significant pitting edema of the lower extremity on this side. ( I have had them elevate the foot of the bed and start SCD hose to see if we can decrease this. ). --- My impression is that today there is less edema in the area of his left lower leg where the SCD hose have been active. When I placed back on his leg I placed it slightly lower such that the lower compartment of the hose was at the ankle level. Objective Data Vital Signs Vital Signs: Vital Signs - 24 hr 08/19/22 23:15 08/20/22 04:00 08/20/22 08:00 Temperature 37.5 C 36.9 C Pulse Rate 97 99 Respiratory Rate 17 18 Blood Pressure 154/69 H 162/81 H Pulse Oximetry 97 95 Oxygen Delivery Room Air 08/20/22 08:00 08/20/22 12:00 08/20/22 16:00 Temperature 36.6 C 36.3 C L 36.4 C L Pulse Rate 93 96 106 H Respiratory Rate 16 22 H 16 Blood Pressure 157/76 H 117/86 127/75 Pulse Oximetry 96 97 98 Oxygen Delivery 08/20/22 20:00 08/20/22 20:00 Temperature 37.7 C H Pulse Rate 106 H 95 Respiratory Rate 16 18 Blood Pressure 143/70 H Pulse Oximetry 98 98 Oxygen Delive
[2022-08-21 04:45] VITALS: BP 138/50; PULSE 81; RESP 16; TEMP 36.7; O2SAT 99
[2022-08-21 06:28] LABS: Basophils Absolute Auto 0.1 K/mm3 (0.0-0.1); Basophils Percent Auto 0.6 % (0.2-1.2); Eosinophils Absolute Auto 0.2 K/mm3 (0-0.3); Eosinophils Percent Auto 2.2 % (0-4.4); Hematocrit 26.6 % (42.0-52.0); Immature Granulocyte Absolute 0.14 K/mm3 (0.00-0.031); Immature Granulocyte Percent A 1.3 % (0-0.5); Lymphocytes Absolute Auto 1.07 K/mm3 (0.9-3.2); Lymphocytes Percent Auto 9.6 % (18.3-44.2); Mean Corpuscular HGB Conc 33.8 g/dl (32-36); Mean Corpuscular Hemoglobin 28.8 pg (26-34); Mean Corpuscular Volume 85.3 fl (80-100); Mean Platelet Volume 10.7 fl (7.4-10.4); Monocytes Percent Auto 8.8 % (2.6-8.5); Neutrophils Absolute Auto 8.6 K/mm3 (1.3-6.7); Neutrophils Percent Auto 77.5 % (45.5-73.1); Platelet Count Result 236 k/mm3 (150-375); Red Blood Count 3.12 M/mm3 (4.6-6.20); Red Cell Distribution Width 13.1 % (11.5-14.5); White Blood Count 11.1 K/mm3 (4.5-10.0)
[2022-08-21 06:35] LABS: Anion Gap 8 mmol/L (8-16); Blood Urea Nitrogen 36 mg/dL (9-20); Calcium 8.3 mg/dL (8.4-10.2); Carbon Dioxide 23 mmol/L (22-30); Chloride 102 mmol/L (98-107); Estimated CRCL calculation 31 ml/min; Estimated Glomerular Filt Rate 42; Glucose 187 mg/dL (65-110); Magnesium 1.8 mg/dL (1.6-2.3); Potassium 4.3 mmol/L (3.4-5.0); Sodium 133 mmol/L (137-145)
[2022-08-21] MEDS: SODIUM CHLORIDE 0.9% IV 1,000 ML 75 ML IV CONT ×2 (08:20→20:59)
[2022-08-21] MEDS: ceFAZolin 2 GM/D5W 50 ML 2 GM/50 ML BAG IVPB ×2 (08:21→20:59)
[2022-08-21] MEDS: INSULIN ASPART (*BKC) 100 UNITS/ML 10 UNITS SUB-Q ×3 (08:28→17:14)
[2022-08-21] MEDS: amLODIPine BESYLATE 5 MG TABLET PO (08:29)
[2022-08-21] MEDS: busPIRone HCL 10 MG TABLET PO ×2 (08:30→17:16)
[2022-08-21] MEDS: ASCORBIC ACID 500 MG TABLET PO (08:30)
[2022-08-21] MEDS: ROSUVASTATIN 10 MG TABLET 20 MG PO (08:30)
[2022-08-21] MEDS: ASPIRIN 81 MG ENTERIC TABLET PO (08:30)
[2022-08-21] MEDS: HEPARIN SODIUM 5,000 UNITS/ML VIAL 5000 UNITS SUB-Q ×2 (08:31→21:00)
[2022-08-21 08:37] LABS: Glucose Point of Care 195 mg/dl (65-105)
--- NOTE | 2022-08-21 11:05 | PM.PNGS ---
Progress Note: A&P Assessment and Plan (1) Cellulitis and abscess of leg: Code(s): L03.119 - Cellulitis of unspecified part of limb; L02.419 - Cutaneous abscess of limb, unspecified Status: Acute Assessment and Plan: Culture returned today showing MSSA. Agree with changing antibiotics . Sensitivities to not delineate sensitivity to cefazolin. Would suggest going home on something that the sensitivity definitely states it is sensitive to such as pops possibly the tetracycline or Bactrim. Topical Silver gel ointment daily per wound care with packing with 1/4 plain Nu gauze ( Shashi patient's nurse showed his how to do this dressing changed today and I believe they would be able to do it at home if he goes home). Wound culture with Staph aureus moderate growth Venous doppler negative for DVT On 08/21/2022 as far as I can see the cellulitis on his left lower leg seems to have cleared. Have ordered SCD hose For the right leg and foot pump to try for the left leg/foot see if patient can tolerate having this on the leg. This may help push some edema/venous flow up the leg while he is in bed. Also elevate foot of bed. Eventually patient will need good set of compression hose. Outpatient wound care plan would be to see the patient in our wound care clinic 1 week from today or within 10 days at least if he goes home. If he goes to extended care facility it should go to 1 where they have wound care capabilities and continue the current above dressing changes and perhaps a foot pump or SCD hose on this side for sure at night would help in healing it. If not a set of George wraps 3 in across his foot and ankle in 4 in from ankle up may help with compression and blood flow due to his chronic venous stasis. He will have trouble healing this wound if we do not keep good compression on the lower leg below the knee. Okay with us for discharge this weekend. I will not ask my partner to see the patient this weekend. Subjective Subjective Date/Time Seen: 08/21/22 11:05 patient working with PT when I initially went to see him. He did walk with a walker. Patient then seen with his nurse and dressing changed on his left leg. Patient has the impression that the swelling in his left leg is improved with use of SCD hose. [facility] agrees with this assessment. Review of Systems Review of Systems: All systems reviewed & are unremarkable except as noted in HPI and below Constitutional: Constitutional: Reports as per HPI, Reports no additional constitutional complaints, Denies chills, Denies fever(s), Denies headache(s) and Denies poor appetite Eyes: Eyes: Reports no additional eye complaints ENT: Reports system reviewed and no additional complaints, except as documented and Reports Normal hearing present Gastrointestinal: Gastrointestinal: Reports no additional gastrointestinal complaints, Denies abdominal pain, Denies change in bowel habits, Denies constipation, Denies diarrhea, Denies nausea and Denies vomiting Genitourinary: Genitourinary: Reports no additional male genitourinary complaints and Denies dysuria Musculoskeletal: Musculoskeletal: Reports no additional musculoskeletal complaints Integumentary/Breasts: Skin/Breast: Reports system reviewed and no additional complaints, except as docu and Reports as per HPI Neurologic: Reports system reviewed and no additional complaints, except as documented, Denies numbness and Denies tingling Exam Skin: Other: Exam limited to lower extremities below the knee. This AM I removed the dressing on the medial side of his left leg with his nurse, Shashi and inspected his wound. It had a gauze and tape dressing on it. it was not packed with Quarter-inch iodoform Nu Gauze as ordered. nurse did not know why the previous day it was not. There is still slight amount of black eschar on the superior edge of this wound that is about 2.5 cm in diameter and approximately 1 cm deep. Pro
[2022-08-21] MEDS: SILVERGEL (ELTA) 45 ML 1 APPLIC TOPICAL (11:22)
[2022-08-21 12:05] LABS: Glucose Point of Care 216 mg/dl (65-105)
[2022-08-21] MEDS: INSULIN ASPART (*BKC) 100 UNITS/ML SUB-Q ×2 (13:51→17:14)
[2022-08-21 14:00] VITALS: BP 136/75; PULSE 112; RESP 18; TEMP 36.9; O2SAT 100
--- NOTE | 2022-08-21 14:44 | PM.IMPN ---
Progress Note: A&P Assessment and Plan (1) Syncope and collapse: Code(s): R55 - Syncope and collapse Status: Acute Assessment and Plan: Patient presented to the ED following a syncopal episode with head injury and LOC of 5 minutes at least. He had prior right frontal/temporal hematoma from previous fall. Telemetry with no arrhythmia Orthostatic vitals borderline positive- hold diuretics. Likely due to orthostasis TTE 08/18/2022 with EF 60-65% chronic left bundle branch block grade 1 diastolic dysfunction moderate pulmonary hypertension CT head with questionable left cerebellar SAH. MRI brain negative for intracranial hemorrhage. Neuro checks Q4 hours. TSH 2.640 Vitamin D 25-OH 26.1 PT/OT to evaluate. Patient lives with spouse. past PT OT (2) Sepsis: Qualifiers: Sepsis type: sepsis due to unspecified organism Sepsis acute organ dysfunction status: without acute organ dysfunction Qualified Code(s): A41.9 - Sepsis, unspecified organism Code(s): A41.9 - Sepsis, unspecified organism Status: Acute Assessment and Plan: HR 123 bpm, WBC 1.28 with bandemia, increased warmth, redness, swelling, wound with purulent discharge. Lactic acid 1.4. UA negative. CXR negative. ED concerns for volume overload and given 40 mg IV lasix x1. Hold IV resuscitation for now. Monitor hemodynamics. SBP 180s. Continue antibiotics for cellulitis as below. On IV vancomycin and IV cefepime and metronidazole. Discussed with the ED pharmacist. Will stop metronidazole. Wound culture is growing Staph aureus Came back as MSSA. With switch antibiotics to Ancef Procalcitonin 0.2 Blood cultures not drawn in ED and IV antibiotics already given. Order blood cultures x2 if temp>100.5F. (3) Cellulitis and abscess of leg: Code(s): L03.119 - Cellulitis of unspecified part of limb; L02.419 - Cutaneous abscess of limb, unspecified Status: Acute Assessment and Plan: LLE with increased edema, redness, hot to touch, medial area below knee with purulent discharge. Wound RN consulted and appreciate recommendations. General surgery consulted for evaluation for bedside I&D and appreciate assistance. Start broad-spectrum antibiotics- Cefepime IV 2 grams Q12, Vancomycin pharmacy dosed, metronidazole 500 mg PO Q8 hours. was switched to Ancef Topical mupirocin ointment daily per wound care. Wound culture with Staph aureus moderate growth sensitivity which grew as MSSA. Antibiotic change as delineated above Venous doppler negative for DVT (4) Diabetes type 2, uncontrolled: Qualifiers: Glycemic state: with hyperglycemia Qualified Code(s): E11.65 - Type 2 diabetes mellitus with hyperglycemia Status: Acute Assessment and Plan: Blood glucose 318 in ED. He reports taking his oral antidiabetic medications prior to admission. Home glucose reported to be 140 to 160s typically. check A1c Accu-checks AC/HS with moderate sliding scale and hypoglycemia protocol Hold oral metformin and glipizide Start lantus 10 units at HS while inpatient. Goal glucose<200 mg/dL for wound healing. H/O neuropathy - B12 level 274 (5) Elevated troponin: Code(s): R77.8 - Other specified abnormalities of plasma proteins Status: Acute Assessment and Plan: Troponin 0.027, 0.043, 0.060. No c/o chest pain. +syncope prior to admission. EKG with sinus tachycardia left anterior fascicular block, T-wave inversion 1 and aVL. Check Echocardiogram Troponin elevation is minimal and likely secondary to demand ischemia from sepsis and tachycardia. Monitor telemetry. Resume aspirin as MRI brain negative for acute ICH Consult cardiology if patient develops chest pain, arrhythmia or echo is abnormal. Obtain outpatient cardiology records. (6) Hypertension: Qualifiers: Hypertension type: primary hypertension Qualified Code(s): I10 - Essential (primary) hypertension Code(s): I
[2022-08-21 16:52] LABS: Glucose Point of Care 269 mg/dl (65-105)
[2022-08-21 20:00] VITALS: BP 158/73; PULSE 72; RESP 18; TEMP 37.7; O2SAT 96
[2022-08-21] MEDS: FINASTERIDE 5 MG TABLET PO (21:00)
[2022-08-21] MEDS: INSULIN GLARGINE (*BKC) 100 UNITS/ML 24 UNITS SUB-Q (21:01)
[2022-08-21] MEDS: TAMSULOSIN HCL 0.4 MG CAPSULE PO (21:01)
[2022-08-21 22:27] LABS: Glucose Point of Care 262 mg/dl (65-105)
[2022-08-22 05:03] VITALS: BP 156/75; PULSE 92; RESP 18; TEMP 37.2; O2SAT 96
[2022-08-22 06:21] LABS: Basophils Absolute Auto 0.1 K/mm3 (0.0-0.1); Basophils Percent Auto 0.4 % (0.2-1.2); Eosinophils Absolute Auto 0.2 K/mm3 (0-0.3); Eosinophils Percent Auto 1.4 % (0-4.4); Hematocrit 26.3 % (42.0-52.0); Hemoglobin 9.1 g/dL (14.0-18.0); Immature Granulocyte Absolute 0.14 K/mm3 (0.00-0.031); Lymphocytes Absolute Auto 0.92 K/mm3 (0.9-3.2); Lymphocytes Percent Auto 6.7 % (18.3-44.2); Mean Corpuscular HGB Conc 34.6 g/dl (32-36); Mean Corpuscular Hemoglobin 29.2 pg (26-34); Mean Corpuscular Volume 84.3 fl (80-100); Mean Platelet Volume 10.7 fl (7.4-10.4); Monocytes Percent Auto 7.2 % (2.6-8.5); Neutrophils Absolute Auto 11.4 K/mm3 (1.3-6.7); Neutrophils Percent Auto 83.3 % (45.5-73.1); Platelet Count Result 238 k/mm3 (150-375); Red Blood Count 3.12 M/mm3 (4.6-6.20); Red Cell Distribution Width 13.2 % (11.5-14.5); White Blood Count 13.6 K/mm3 (4.5-10.0)
[2022-08-22 06:34] LABS: Anion Gap 13 mmol/L (8-16); Blood Urea Nitrogen 29 mg/dL (9-20); Calcium 8.3 mg/dL (8.4-10.2); Carbon Dioxide 20 mmol/L (22-30); Chloride 103 mmol/L (98-107); Estimated CRCL calculation 37 ml/min; Estimated Glomerular Filt Rate 53; Glucose 195 mg/dL (65-110); Potassium 3.7 mmol/L (3.4-5.0); Sodium 136 mmol/L (137-145)
[2022-08-22 08:16] LABS: Glucose Point of Care 203 mg/dl (65-105)
[2022-08-22] MEDS: INSULIN ASPART (*BKC) 100 UNITS/ML SUB-Q ×3 (08:24→17:11)
[2022-08-22] MEDS: INSULIN ASPART (*BKC) 100 UNITS/ML 10 UNITS SUB-Q ×3 (08:24→17:12)
[2022-08-22] MEDS: ROSUVASTATIN 10 MG TABLET 20 MG PO (08:25)
[2022-08-22] MEDS: HEPARIN SODIUM 5,000 UNITS/ML VIAL 5000 UNITS SUB-Q ×2 (08:25→21:36)
[2022-08-22] MEDS: ASPIRIN 81 MG ENTERIC TABLET PO (08:25)
[2022-08-22] MEDS: amLODIPine BESYLATE 5 MG TABLET PO (08:25)
[2022-08-22] MEDS: ASCORBIC ACID 500 MG TABLET PO (08:26)
[2022-08-22] MEDS: busPIRone HCL 10 MG TABLET PO ×2 (08:26→17:10)
[2022-08-22] MEDS: ceFAZolin 2 GM/D5W 50 ML 2 GM/50 ML BAG IVPB ×2 (08:26→21:35)
[2022-08-22] MEDS: ACETAMINOPHEN 325 MG TABLET 650 MG PO (11:39)
[2022-08-22 12:23] LABS: Glucose Point of Care 213 mg/dl (65-105)
--- NOTE | 2022-08-22 13:32 | PM.IMPN ---
Progress Note: A&P Assessment and Plan (1) Syncope and collapse: Code(s): R55 - Syncope and collapse Status: Acute Assessment and Plan: Patient presented to the ED following a syncopal episode with head injury and LOC of 5 minutes at least. He had prior right frontal/temporal hematoma from previous fall. Telemetry with no arrhythmia Orthostatic vitals borderline positive- hold diuretics. Likely due to orthostasis TTE 08/18/2022 with EF 60-65% chronic left bundle branch block grade 1 diastolic dysfunction moderate pulmonary hypertension CT head with questionable left cerebellar SAH. MRI brain negative for intracranial hemorrhage. Neuro checks Q4 hours. TSH 2.640 Vitamin D 25-OH 26.1 PT/OT to evaluate. Patient lives with spouse. passed PT OT (2) Sepsis: Qualifiers: Sepsis type: sepsis due to unspecified organism Sepsis acute organ dysfunction status: without acute organ dysfunction Qualified Code(s): A41.9 - Sepsis, unspecified organism Code(s): A41.9 - Sepsis, unspecified organism Status: Acute Assessment and Plan: HR 123 bpm, WBC 1.28 with bandemia, increased warmth, redness, swelling, wound with purulent discharge. Lactic acid 1.4. UA negative. CXR negative. ED concerns for volume overload and given 40 mg IV lasix x1. Hold IV resuscitation for now. Monitor hemodynamics. SBP 180s. Continue antibiotics for cellulitis as below. On IV vancomycin and IV cefepime and metronidazole. Discussed with the ED pharmacist. Will stop metronidazole. Wound culture is growing Staph aureus Came back as MSSA. With switch antibiotics to Ancef Procalcitonin 0.2 Blood cultures not drawn in ED and IV antibiotics already given. Order blood cultures x2 if temp>100.5F. still intermittently has a mild temp, will ctm. leukocytosis worsened today. will recheck in am and continue same antibiotic as this covers for the bacteria that is growing in the wound culture (3) Cellulitis and abscess of leg: Code(s): L03.119 - Cellulitis of unspecified part of limb; L02.419 - Cutaneous abscess of limb, unspecified Status: Acute Assessment and Plan: LLE with increased edema, redness, hot to touch, medial area below knee with purulent discharge. Wound RN consulted and appreciate recommendations. General surgery consulted for evaluation for bedside I&D and appreciate assistance. Start broad-spectrum antibiotics- Cefepime IV 2 grams Q12, Vancomycin pharmacy dosed, metronidazole 500 mg PO Q8 hours. was switched to Ancef Topical mupirocin ointment daily per wound care. Wound culture with Staph aureus moderate growth sensitivity which grew as MSSA. Antibiotic change as delineated above Venous doppler negative for DVT (4) Diabetes type 2, uncontrolled: Qualifiers: Glycemic state: with hyperglycemia Qualified Code(s): E11.65 - Type 2 diabetes mellitus with hyperglycemia Status: Acute Assessment and Plan: Blood glucose 318 in ED. He reports taking his oral antidiabetic medications prior to admission. Home glucose reported to be 140 to 160s typically. check A1c Accu-checks AC/HS with moderate sliding scale and hypoglycemia protocol Hold oral metformin and glipizide Start lantus 10 units at HS while inpatient. Goal glucose<200 mg/dL for wound healing. H/O neuropathy - B12 level 274 (5) Elevated troponin: Code(s): R77.8 - Other specified abnormalities of plasma proteins Status: Acute Assessment and Plan: Troponin 0.027, 0.043, 0.060. No c/o chest pain. +syncope prior to admission. EKG with sinus tachycardia left anterior fascicular block, T-wave inversion 1 and aVL. Check Echocardiogram Troponin elevation is minimal and likely secondary to demand ischemia from sepsis and tachycardia. Monitor telemetry. Resume aspirin as MRI brain negative for acute ICH Consult cardiology if patient develops chest pain, arrhythmia or echo is abnormal. Obtain ou
[2022-08-22 15:49] VITALS: BP 152/70; PULSE 94; RESP 18; TEMP 37.3; O2SAT 99
[2022-08-22] MEDS: SILVERGEL (ELTA) 45 ML 1 APPLIC TOPICAL (16:28)
[2022-08-22 17:03] LABS: Glucose Point of Care 232 mg/dl (65-105)
[2022-08-22 20:00] VITALS: BP 157/78; PULSE 99; RESP 18; TEMP 36.6; O2SAT 99
[2022-08-22] MEDS: INSULIN GLARGINE (*BKC) 100 UNITS/ML 24 UNITS SUB-Q (21:35)
[2022-08-22] MEDS: FINASTERIDE 5 MG TABLET PO (21:35)
[2022-08-22] MEDS: TAMSULOSIN HCL 0.4 MG CAPSULE PO (21:35)
[2022-08-22 23:46] LABS: Glucose Point of Care 153 mg/dl (65-105)
[2022-08-23 06:00] VITALS: BP 143/63; PULSE 95; RESP 18; TEMP 36.9; O2SAT 98
[2022-08-23 07:54] LABS: Glucose Point of Care 147 mg/dl (65-105)
[2022-08-23] MEDS: INSULIN ASPART (*BKC) 100 UNITS/ML 10 UNITS SUB-Q ×3 (08:08→16:49)
[2022-08-23] MEDS: ceFAZolin 2 GM/D5W 50 ML 2 GM/50 ML BAG IVPB ×2 (08:09→20:43)
[2022-08-23] MEDS: ASCORBIC ACID 500 MG TABLET PO (08:10)
[2022-08-23] MEDS: amLODIPine BESYLATE 5 MG TABLET PO (08:10)
[2022-08-23] MEDS: ROSUVASTATIN 10 MG TABLET 20 MG PO (08:10)
[2022-08-23] MEDS: ASPIRIN 81 MG ENTERIC TABLET PO (08:10)
[2022-08-23] MEDS: busPIRone HCL 10 MG TABLET PO ×2 (08:10→16:48)
[2022-08-23] MEDS: HEPARIN SODIUM 5,000 UNITS/ML VIAL 5000 UNITS SUB-Q ×2 (08:10→20:44)
[2022-08-23 08:21] LABS: Basophils Percent Auto 0.3 % (0.2-1.2); Eosinophils Absolute Auto 0.3 K/mm3 (0-0.3); Eosinophils Percent Auto 2.3 % (0-4.4); Hematocrit 26.6 % (42.0-52.0); Hemoglobin 9.2 g/dL (14.0-18.0); Immature Granulocyte Absolute 0.12 K/mm3 (0.00-0.031); Immature Granulocyte Percent A 0.9 % (0-0.5); Lymphocytes Absolute Auto 0.73 K/mm3 (0.9-3.2); Lymphocytes Percent Auto 5.2 % (18.3-44.2); Mean Corpuscular HGB Conc 34.6 g/dl (32-36); Mean Corpuscular Hemoglobin 28.8 pg (26-34); Mean Corpuscular Volume 83.4 fl (80-100); Mean Platelet Volume 10.6 fl (7.4-10.4); Monocytes Absolute Auto 1.1 K/mm3 (0.1-0.6); Monocytes Percent Auto 7.9 % (2.6-8.5); Neutrophils Absolute Auto 11.6 K/mm3 (1.3-6.7); Neutrophils Percent Auto 83.4 % (45.5-73.1); Platelet Count Result 244 k/mm3 (150-375); Red Blood Count 3.19 M/mm3 (4.6-6.20); Red Cell Distribution Width 13.2 % (11.5-14.5); White Blood Count 13.9 K/mm3 (4.5-10.0)
[2022-08-23] MEDS: SILVERGEL (ELTA) 45 ML 1 APPLIC TOPICAL (08:26)
[2022-08-23 08:30] LABS: Alanine Aminotransferase 13 U/L (6-50); Alkaline Phosphatase 80 U/L (38-126); Anion Gap 12 mmol/L (8-16); Aspartate Amino Transferase 26 U/L (17-59); Bilirubin,Total 0.5 mg/dL (0.2-1.3); Blood Urea Nitrogen 22 mg/dL (9-20); Calcium 8.6 mg/dL (8.4-10.2); Carbon Dioxide 20 mmol/L (22-30); Chloride 102 mmol/L (98-107); Estimated CRCL calculation 44 ml/min; Estimated Glomerular Filt Rate > 60; Glucose 140 mg/dL (65-110); Magnesium 1.7 mg/dL (1.6-2.3); Potassium 3.6 mmol/L (3.4-5.0); Sodium 134 mmol/L (137-145)
[2022-08-23 11:10] LABS: Glucose Point of Care 139 mg/dl (65-105)
[2022-08-23 11:35] VITALS: TEMP 37.4
[2022-08-23] MEDS: ACETAMINOPHEN 325 MG TABLET 650 MG PO (11:35)
[2022-08-23 12:35] VITALS: TEMP 37.4
[2022-08-23] MEDS: metroNIDAZOLE 250 MG TABLET 500 MG PO ×2 (13:35→21:25)
--- NOTE | 2022-08-23 13:43 | PCPTNOTE ---
Attempted to see patient for Physical Therapy session at 0938 and again at 1342, patient declined both attempts.
[2022-08-23 13:52] VITALS: BP 146/62; PULSE 103; RESP 16; TEMP 37.3; O2SAT 97
--- NOTE | 2022-08-23 14:34 | PM.IMPN ---
Progress Note: A&P Assessment and Plan (1) Syncope and collapse: Code(s): R55 - Syncope and collapse Status: Acute Assessment and Plan: Patient presented to the ED following a syncopal episode with head injury and LOC of 5 minutes at least. He had prior right frontal/temporal hematoma from previous fall. Telemetry with no arrhythmia Orthostatic vitals borderline positive- hold diuretics. Likely due to orthostasis TTE 08/18/2022 with EF 60-65% chronic left bundle branch block grade 1 diastolic dysfunction moderate pulmonary hypertension CT head with questionable left cerebellar SAH. MRI brain negative for intracranial hemorrhage. Neuro checks Q4 hours. TSH 2.640 Vitamin D 25-OH 26.1 PT/OT to evaluate. Patient lives with spouse. passed PT OT (2) Sepsis: Qualifiers: Sepsis type: sepsis due to unspecified organism Sepsis acute organ dysfunction status: without acute organ dysfunction Qualified Code(s): A41.9 - Sepsis, unspecified organism Code(s): A41.9 - Sepsis, unspecified organism Status: Acute Assessment and Plan: HR 123 bpm, WBC 1.28 with bandemia, increased warmth, redness, swelling, wound with purulent discharge. Lactic acid 1.4. UA negative. CXR negative. ED concerns for volume overload and given 40 mg IV lasix x1. Hold IV resuscitation for now. Monitor hemodynamics. SBP 180s. Continue antibiotics for cellulitis as below. On IV vancomycin and IV cefepime and metronidazole. Discussed with the ED pharmacist. Will stop metronidazole. Wound culture is growing Staph aureus Came back as MSSA. With switch antibiotics to Ancef Procalcitonin 0.2 Blood cultures not drawn in ED and IV antibiotics already given. Order blood cultures x2 if temp>100.5F. still intermittently has a mild temp, will ctm. leukocytosis worsened and continues to worsen. His wound is still draining pus. Wound culture only grew MSSA and on appropriate antibiotic despite glucose 80 worsened. Will add Bactrim for additional MRSA coverage and recheck labs in a.m.. Continue wound care (3) Cellulitis and abscess of leg: Code(s): L03.119 - Cellulitis of unspecified part of limb; L02.419 - Cutaneous abscess of limb, unspecified Status: Acute Assessment and Plan: LLE with increased edema, redness, hot to touch, medial area below knee with purulent discharge. Wound RN consulted and appreciate recommendations. General surgery consulted for evaluation for bedside I&D and appreciate assistance. Start broad-spectrum antibiotics- Cefepime IV 2 grams Q12, Vancomycin pharmacy dosed, metronidazole 500 mg PO Q8 hours. was switched to Ancef Topical mupirocin ointment daily per wound care. Wound culture with Staph aureus moderate growth sensitivity which grew as MSSA. Antibiotic change as delineated above Venous doppler negative for DVT (4) Diabetes type 2, uncontrolled: Qualifiers: Glycemic state: with hyperglycemia Qualified Code(s): E11.65 - Type 2 diabetes mellitus with hyperglycemia Status: Acute Assessment and Plan: Blood glucose 318 in ED. He reports taking his oral antidiabetic medications prior to admission. Home glucose reported to be 140 to 160s typically. check A1c Accu-checks AC/HS with moderate sliding scale and hypoglycemia protocol Hold oral metformin and glipizide Start lantus 10 units at HS while inpatient. Goal glucose<200 mg/dL for wound healing. H/O neuropathy - B12 level 274 (5) Elevated troponin: Code(s): R77.8 - Other specified abnormalities of plasma proteins Status: Acute Assessment and Plan: Troponin 0.027, 0.043, 0.060. No c/o chest pain. +syncope prior to admission. EKG with sinus tachycardia left anterior fascicular block, T-wave inversion 1 and aVL. Check Echocardiogram Troponin elevation is minimal and likely secondary to demand ischemia from sepsis and tachycardia. Monitor telemetry. Resume aspirin as MRI brai
[2022-08-23 16:29] LABS: Glucose Point of Care 215 mg/dl (65-105)
[2022-08-23] MEDS: INSULIN ASPART (*BKC) 100 UNITS/ML SUB-Q (16:48)
[2022-08-23 20:00] VITALS: BP 173/88; PULSE 98; RESP 18; TEMP 36.5; O2SAT 97
[2022-08-23] MEDS: FINASTERIDE 5 MG TABLET PO (20:44)
[2022-08-23] MEDS: SULFAMETHOXAZOLE/TRIMETHOPRIM 800/160 MG DS TABLET 1 TAB PO (20:44)
[2022-08-23] MEDS: INSULIN GLARGINE (*BKC) 100 UNITS/ML 24 UNITS SUB-Q (20:52)
[2022-08-23] MEDS: TAMSULOSIN HCL 0.4 MG CAPSULE PO (21:25)
[2022-08-24 02:08] LABS: Glucose Point of Care 151 mg/dl (65-105)
[2022-08-24 06:00] VITALS: BP 149/66; PULSE 97; RESP 18; TEMP 36.3; O2SAT 100
[2022-08-24] MEDS: metroNIDAZOLE 250 MG TABLET 500 MG PO (06:10)
[2022-08-24 06:33] LABS: Basophils Percent Auto 0.3 % (0.2-1.2); Eosinophils Absolute Auto 0.3 K/mm3 (0-0.3); Eosinophils Percent Auto 2.8 % (0-4.4); Hemoglobin 9.6 g/dL (14.0-18.0); Immature Granulocyte Absolute 0.15 K/mm3 (0.00-0.031); Immature Granulocyte Percent A 1.3 % (0-0.5); Lymphocytes Absolute Auto 0.59 K/mm3 (0.9-3.2); Lymphocytes Percent Auto 5.1 % (18.3-44.2); Mean Corpuscular HGB Conc 34.3 g/dl (32-36); Mean Corpuscular Hemoglobin 29.4 pg (26-34); Mean Corpuscular Volume 85.9 fl (80-100); Mean Platelet Volume 10.2 fl (7.4-10.4); Monocytes Absolute Auto 1.1 K/mm3 (0.1-0.6); Monocytes Percent Auto 9.2 % (2.6-8.5); Neutrophils Absolute Auto 9.5 K/mm3 (1.3-6.7); Neutrophils Percent Auto 81.3 % (45.5-73.1); Platelet Count Result 237 k/mm3 (150-375); Red Blood Count 3.26 M/mm3 (4.6-6.20); Red Cell Distribution Width 13.3 % (11.5-14.5); White Blood Count 11.7 K/mm3 (4.5-10.0)
[2022-08-24 06:46] LABS: Alanine Aminotransferase 11 U/L (6-50); Alkaline Phosphatase 87 U/L (38-126); Anion Gap 10 mmol/L (8-16); Aspartate Amino Transferase 24 U/L (17-59); Bilirubin,Total 0.5 mg/dL (0.2-1.3); Blood Urea Nitrogen 18 mg/dL (9-20); Calcium 8.4 mg/dL (8.4-10.2); Carbon Dioxide 22 mmol/L (22-30); Chloride 103 mmol/L (98-107); Estimated CRCL calculation 44 ml/min; Estimated Glomerular Filt Rate > 60; Glucose 182 mg/dL (65-110); Potassium 3.7 mmol/L (3.4-5.0); Sodium 135 mmol/L (137-145)
[2022-08-24 07:06] LABS: Toxigenic C. Diff POSITIVE (NEGATIVE)
[2022-08-24] MEDS: INSULIN ASPART (*BKC) 100 UNITS/ML 10 UNITS SUB-Q ×3 (08:16→17:27)
[2022-08-24] MEDS: HEPARIN SODIUM 5,000 UNITS/ML VIAL 5000 UNITS SUB-Q ×2 (08:18→22:33)
[2022-08-24] MEDS: ASPIRIN 81 MG ENTERIC TABLET PO (08:19)
[2022-08-24] MEDS: ROSUVASTATIN 10 MG TABLET 20 MG PO (08:19)
[2022-08-24] MEDS: ASCORBIC ACID 500 MG TABLET PO (08:19)
[2022-08-24] MEDS: SULFAMETHOXAZOLE/TRIMETHOPRIM 800/160 MG DS TABLET 1 TAB PO ×2 (08:19→22:34)
[2022-08-24] MEDS: busPIRone HCL 10 MG TABLET PO ×2 (08:19→17:27)
[2022-08-24] MEDS: amLODIPine BESYLATE 5 MG TABLET PO (08:19)
[2022-08-24] MEDS: SILVERGEL (ELTA) 45 ML 1 APPLIC TOPICAL (08:20)
[2022-08-24] MEDS: SACCHAROMYCES BOULARDII 250 MG CAPSULE PO ×2 (08:20→17:27)
[2022-08-24] MEDS: ceFAZolin 2 GM/D5W 50 ML 2 GM/50 ML BAG IVPB (08:28)
[2022-08-24 08:37] LABS: Glucose Point of Care 196 mg/dl (65-105)
--- NOTE | 2022-08-24 10:38 | PM.PNGS ---
Progress Note: A&P Assessment and Plan (1) Cellulitis and abscess of leg: Code(s): L03.119 - Cellulitis of unspecified part of limb; L02.419 - Cutaneous abscess of limb, unspecified Status: Acute Assessment and Plan: Cellulitis improving and wound looks good. Continue local wound care with silver gel and plain nugauze packing daily to the left lower leg wound. Wound cx grew MSSA, continue Bactrim. Okay to discharge the patient from our standpoint when okay with the primary service. Will plan to have patient follow-up in the wound clinic next week for a wound check. (2) C. difficile diarrhea: Code(s): A04.72 - Enterocolitis due to Clostridium difficile, not specified as recurrent Status: Acute Assessment and Plan: C. Diff + on 08/24/22, now on oral vancomycin. Continue contact isolation and management per Hospitalist. Plan I have discussed the patient's case and plan of care with Dr. Reich. Subjective Subjective Date/Time Seen: 08/24/22 10:15 Patient reports: no new complaints, diarrhea and afebrile Interval history: Chart reviewed since last seen. He is sitting in bed comfortably with his food tray in front of him. He feels frustrated because he is still in the hospital, but otherwise no specific complaints. He began having diarrhea and tested positive for Cdiff. He is now on contact isolation precautions. He feels the redness and swelling in his left leg continues to improve. Review of Systems Review of Systems: All systems reviewed & are unremarkable except as noted in HPI and below Exam Const: General: comfortable and no acute distress Nutritional Appearance: obese Orientation/consciousness: patient oriented x3 Skin: Other: Left medial lower leg wound with smaller depth and less tunneling distally down the leg, scant amount of exudative crowe/yellow slough in the wound bed but no purulent drainage. Overall redness and swelling of the left lower leg and foot has improved. Objective Data Vital Signs Vital Signs: Vital Signs - 24 hr 08/23/22 11:35 08/23/22 12:35 08/23/22 13:52 Temperature 99.3 F 99.4 F 99.1 F Pulse Rate 103 H Respiratory Rate 16 Blood Pressure 146/62 H Pulse Oximetry 97 08/23/22 20:00 08/24/22 06:00 Temperature 97.7 F 97.4 F L Pulse Rate 98 97 Respiratory Rate 18 18 Blood Pressure 173/88 H 149/66 H Pulse Oximetry 97 100 Intake/Output Intake/Output: Intake & Output 08/21/22 08/22/22 08/23/22 08/24/22 23:59 23:59 23:59 23:59 Intake Total 3500 1730 1370 500 Output Total 1200 950 600 Balance 2300 1730 420 -100 Meds/Results Medications: Active Medications Generic Name Dose Route Start Last Admin Trade Name Freq PRN Reason Stop Dose Admin Acetaminophen 650 mg 08/22/22 11:30 08/23/22 11:35 Acetaminophen 325 Mg Tablet PO 650 mg Q6H PRN Administration Mild Pain (1-3) or Fever Amlodipine Besylate 5 mg 08/18/22 09:00 08/24/22 08:19 Amlodipine Besylate 5 Mg Tablet PO 5 mg DAILY ESTRADA Administration Ascorbic Acid 500 mg 08/18/22 09:00 08/24/22 08:19 Ascorbic Acid 500 Mg Tablet PO 500 mg DAILY ESTRADA Administration Aspirin 81 mg 08/19/22 09:00 08/24/22 08:19 Aspirin 81 Mg Enteric Tablet PO 81 mg QAM ESTRADA Administration Buspirone HCl 10 mg 08/18/22 09:00 08/24/22 08:19 Buspirone Hcl 10 Mg Tablet PO 10 mg BID ESTRADA Administration Dextrose 12.5 gm 08/18/22 08:12 Dextrose 50% 25 Gm/50 Ml Syringe IV PUSH PRN PRN Hypoglycemia Protocol Finasteride 5 mg 08/18/22 21:00 08/23/22 20:44 Finasteride 5 Mg Tablet PO 5 mg HS ESTRADA Administration Glucagon 1 mg 08/18/22 08:12 Glucagon For Inj 1 Mg Vial IM PRN PRN Hypoglycemia Protocol Glucose 15 gm 08/18/22 08:12 Glucose Oral Gel 15 Gm Of Glucse In 37.5 Gm Tube PO PRN PRN Hypoglycemia Protocol Heparin Sodium (Porcine) 5,000 units 08/18/22 21:00 08/24/22 08:18
[2022-08-24 11:37] LABS: Glucose Point of Care 208 mg/dl (65-105)
[2022-08-24] MEDS: INSULIN ASPART (*BKC) 100 UNITS/ML SUB-Q (12:07)
[2022-08-24] MEDS: VANCOMYCIN ORAL 125 MG/2.5 ML SYRUP PO ×2 (12:08→17:28)
[2022-08-24 14:00] VITALS: BP 139/70; PULSE 110; RESP 20; TEMP 37; O2SAT 96
--- NOTE | 2022-08-24 14:54 | P.PNIM_ITS ---
Progress Note: A&P Assessment and Plan (1) Syncope and collapse: Code(s): R55 - Syncope and collapse Status: Acute Assessment and Plan: Patient presented to the ED following a syncopal episode with head injury and LOC of 5 minutes at least. He had prior right frontal/temporal hematoma from previous fall. Telemetry with no arrhythmia Orthostatic vitals borderline positive- hold diuretics. Likely due to or thostasis TTE 08/18/2022 with EF 60-65% chronic left bundle branch block grade 1 diastolic dysfunction moderate pulmonary hypertension CT head with questionable left cerebellar SAH. MRI brain negative for intracranial hemorrhage. Neuro checks Q4 hours. TSH 2.640 Vitamin D 25-OH 26.1 PT/OT to evaluate. Patient lives with spouse. passed PT OT (2) Sepsis: Qualifiers: Sepsis type: sepsis due to unspecified organism Sepsis acute organ dysfunction status: without acute organ dysfunction Qualified Code(s): A41.9 - Sepsis, unspecified organism Code(s): A41.9 - Sepsis, unspecified organism Status: Acute Assessment and Plan: HR 123 bpm, WBC 1.28 with bandemia, increased warmth, redness, swelling, wound with purulent discharge. Lactic acid 1.4. UA negative. CXR negative. ED concerns for volume overload and given 40 mg IV lasix x1. Hold IV resuscitation for now. Monitor hemodynamics. SBP 180s. Continue antibiotics for cellulitis as below. On IV vancomycin and IV cefepime and metronidazole. Discussed with the ED pharmacist. Will stop metronidazole. Wound culture is growing Staph aureus Came back as MSSA. With switch antibiotics to Ancef Procalcitonin 0.2 Blood cultures not drawn in ED and IV antibiotics already given. Order blood cultures x2 if temp>100.5F. still intermittently has a mild temp, will ctm. leukocytosis worsened and continues to worsen. His wound is still draining pus. Wound culture only grew MSSA and on appropriate antibiotic despite glucose 80 worsened. Added Bactrim for additional MRSA coverage as WBC count continued to worsen. Will stop Ancef today (3) Cellulitis and abscess of leg: Code(s): L03.119 - Cellulitis of unspecified part of limb; L02.419 - Cutaneous abscess of limb, unspecified Status: Acute Assessment and Plan: LLE with increased edema, redness, hot to touch, medial area below knee with purulent discharge. Wound RN consulted and appreciate recommendations. General surgery consulted for evaluation for bedside I&D and appreciate assistance. Start broad-spectrum antibiotics- Cefepime IV 2 grams Q12, Vancomycin pharmacy dosed, metronidazole 500 mg PO Q8 hours. was switched to Ancef Topical mupirocin ointment daily per wound care. Wound culture with Staph aureus moderate growth sensitivity which grew as MSSA. Antibiotic change as delineated above Venous doppler negative for DVT (4) Diabetes type 2, uncontrolled: Qualifiers: Glycemic state: with hyperglycemia Qualified Code(s): E11.65 - Type 2 diabetes mellitus with hyperglycemia Status: Acute Assessment and Plan: Blood glucose 318 in ED. He reports taking his oral antidiabetic medications prior to admission. Home glucose reported to be 140 to 160s typically. check A1c Accu-checks AC/HS with moderate sliding scale and hypoglycemia protocol Hold oral metformin and glipizide Start lantus 10 units at HS while inpatient. Goal glucose<200 mg/dL for wound healing. H/O neuropathy - B12 level 274 (5) Elevated troponin: Code(s): R77.8 - Other specified abnormalities of plasma proteins Status: Acute Assessment
[2022-08-24 16:47] LABS: Glucose Point of Care 180 mg/dl (65-105)
[2022-08-24 20:00] VITALS: PULSE 99; RESP 16; O2SAT 97
[2022-08-24 22:00] VITALS: BP 134/68; PULSE 99; RESP 16; TEMP 36.2; O2SAT 97
[2022-08-24] MEDS: INSULIN GLARGINE (*BKC) 100 UNITS/ML 24 UNITS SUB-Q (22:32)
[2022-08-24] MEDS: FINASTERIDE 5 MG TABLET PO (22:33)
[2022-08-24] MEDS: TAMSULOSIN HCL 0.4 MG CAPSULE PO (22:34)
[2022-08-24 22:37] LABS: Glucose Point of Care 130 mg/dl (65-105)
[2022-08-25] MEDS: VANCOMYCIN ORAL 125 MG/2.5 ML SYRUP PO ×3 (00:51→12:23)
[2022-08-25 06:01] VITALS: BP 152/72; PULSE 99; RESP 16; TEMP 36.4; O2SAT 96
[2022-08-25 07:56] LABS: Glucose Point of Care 127 mg/dl (65-105)
[2022-08-25] MEDS: ASPIRIN 81 MG ENTERIC TABLET PO (09:31)
[2022-08-25] MEDS: SULFAMETHOXAZOLE/TRIMETHOPRIM 800/160 MG DS TABLET 1 TAB PO (09:31)
[2022-08-25] MEDS: busPIRone HCL 10 MG TABLET PO (09:31)
[2022-08-25] MEDS: HEPARIN SODIUM 5,000 UNITS/ML VIAL 5000 UNITS SUB-Q (09:31)
[2022-08-25] MEDS: SACCHAROMYCES BOULARDII 250 MG CAPSULE PO (09:31)
[2022-08-25] MEDS: ROSUVASTATIN 10 MG TABLET 20 MG PO (09:31)
[2022-08-25] MEDS: SILVERGEL (ELTA) 45 ML 1 APPLIC TOPICAL (09:32)
[2022-08-25] MEDS: amLODIPine BESYLATE 5 MG TABLET PO (09:32)
[2022-08-25] MEDS: ASCORBIC ACID 500 MG TABLET PO (09:32)
[2022-08-25] MEDS: INSULIN ASPART (*BKC) 100 UNITS/ML SUB-Q ×2 (09:35→12:24)
[2022-08-25 11:24] LABS: Basophils Percent Auto 0.2 % (0.2-1.2); Eosinophils Absolute Auto 0.2 K/mm3 (0-0.3); Eosinophils Percent Auto 1.4 % (0-4.4); Hematocrit 26.3 % (42.0-52.0); Hemoglobin 9.1 g/dL (14.0-18.0); Immature Granulocyte Absolute 0.11 K/mm3 (0.00-0.031); Lymphocytes Absolute Auto 0.91 K/mm3 (0.9-3.2); Lymphocytes Percent Auto 8.2 % (18.3-44.2); Mean Corpuscular HGB Conc 34.6 g/dl (32-36); Mean Corpuscular Hemoglobin 29.6 pg (26-34); Mean Corpuscular Volume 85.7 fl (80-100); Mean Platelet Volume 10.1 fl (7.4-10.4); Monocytes Absolute Auto 1.1 K/mm3 (0.1-0.6); Monocytes Percent Auto 9.6 % (2.6-8.5); Neutrophils Absolute Auto 8.9 K/mm3 (1.3-6.7); Neutrophils Percent Auto 79.6 % (45.5-73.1); Platelet Count Result 274 k/mm3 (150-375); Red Blood Count 3.07 M/mm3 (4.6-6.20); Red Cell Distribution Width 13.7 % (11.5-14.5); White Blood Count 11.1 K/mm3 (4.5-10.0)
[2022-08-25 11:24] LABS: Glucose Point of Care 138 mg/dl (65-105)
[2022-08-25 11:37] LABS: Alanine Aminotransferase 10 U/L (6-50); Albumin Level 2.9 g/dL (3.5-5.1); Alkaline Phosphatase 83 U/L (38-126); Anion Gap 7 mmol/L (8-16); Aspartate Amino Transferase 22 U/L (17-59); Bilirubin,Total 0.4 mg/dL (0.2-1.3); Blood Urea Nitrogen 15 mg/dL (9-20); Calcium 8.2 mg/dL (8.4-10.2); Carbon Dioxide 22 mmol/L (22-30); Chloride 103 mmol/L (98-107); Estimated CRCL calculation 38 ml/min; Estimated Glomerular Filt Rate 53; Glucose 145 mg/dL (65-110); Magnesium 1.7 mg/dL (1.6-2.3); Potassium 3.8 mmol/L (3.4-5.0); Sodium 132 mmol/L (137-145)
[2022-08-25 13:53] VITALS: BP 140/69; PULSE 99; RESP 18; TEMP 37.2; O2SAT 95
--- NOTE | 2022-08-25 14:57 | PM.DS ---
DS: Admitting Diagnosis Discharge Date 08/25/2022 Admitting Diagnosis syncopal episode DS: Discharge Diagnosis Discharge Diagnosis (1) Syncope and collapse: Code(s): R55 - Syncope and collapse Status: Acute (2) Sepsis: Qualifiers: Sepsis type: sepsis due to unspecified organism Sepsis acute organ dysfunction status: without acute organ dysfunction Qualified Code(s): A41.9 - Sepsis, unspecified organism Code(s): A41.9 - Sepsis, unspecified organism Status: Acute (3) Cellulitis and abscess of leg: Code(s): L03.119 - Cellulitis of unspecified part of limb; L02.419 - Cutaneous abscess of limb, unspecified Status: Acute (4) Diabetes type 2, uncontrolled: Qualifiers: Glycemic state: with hyperglycemia Qualified Code(s): E11.65 - Type 2 diabetes mellitus with hyperglycemia Status: Acute (5) Elevated troponin: Code(s): R77.8 - Other specified abnormalities of plasma proteins Status: Acute (6) Hypertension: Qualifiers: Hypertension type: primary hypertension Qualified Code(s): I10 - Essential (primary) hypertension Code(s): I10 - Essential (primary) hypertension Status: Chronic (7) BPH (benign prostatic hyperplasia): Qualifiers: Lower urinary tract symptom presence: symptoms absent Qualified Code(s): N40.0 - Benign prostatic hyperplasia without lower urinary tract symptoms Code(s): N40.0 - Benign prostatic hyperplasia without lower urinary tract symptoms Status: Chronic (8) Hyperlipidemia: Qualifiers: Hyperlipidemia type: mixed hyperlipidemia Qualified Code(s): E78.2 - Mixed hyperlipidemia Code(s): E78.5 - Hyperlipidemia, unspecified Status: Chronic (9) Acute kidney injury: Code(s): N17.9 - Acute kidney failure, unspecified Status: Acute (10) C. difficile diarrhea: Code(s): A04.72 - Enterocolitis due to Clostridium difficile, not specified as recurrent Status: Acute DS: Summary Hospital Course Hospital Course: # syncope: Patient presented to the ED following a syncopal episode with head injury and LOC of 5 minutes at least. He had prior right frontal/temporal hematoma from previous fall. Telemetry with? no arrhythmia . Orthostatic vitals borderline positive- hold diuretics.? Likely due to orthostasis . Diuretics were on hold during the hospital stay. Will resume 20 mg daily Lasix at discharge. Will continue to hold metolazone TTE 08/18/2022 with EF 60-65% chronic left bundle branch block grade 1 diastolic dysfunction moderate pulmonary hypertension CT head with questionable left cerebellar SAH. MRI brain negative for intracranial hemorrhage. Neuro checks Q4 hours and remained within normal limit. TSH 2.640 Vitamin D 25-OH 26.1 PT/OT to evaluate.? Patient lives with spouse. initially passed PT OT for him to go but with C diff colitis that he developed he developed weakness and qualify for skilled therapy. His excepted at [facility] is getting discharged # sepsis: HR 123 bpm, WBC 1.28 with bandemia, increased warmth, redness, swelling, wound with purulent discharge. Lactic acid 1.4. UA negative. CXR negative. ED concerns for volume overload and given 40 mg IV lasix x1. Held any further diuretics during the hospital stay. His sepsis resolved with treatment with broad-spectrum antibiotics initially with IV vancomycin cefepime and metronidazole. He had left lower leg cellulitis with abscess for which General surgery was consulted and underwent incision and drainage. His wound culture grew MSSA for which his antibiotics were tapered down to Ancef. While on Ancef he continued to increase is WBC: And hence Bactrim was added for MRSA coverage. It did help lower the WBC count and also dissipate his fever. he will continue on Bactrim for 5 more days at the time of discharge. # Cellulitis and abscess of leg: LLE with increased edema, r
== END 2022-08-25 16:07 | DRG 854 ==
LOC: ANHED 08-18 02:43 → ANHIMU 08-18 03:43 → ANH3MEDSUR 08-19 17:34
PROVIDERS: Nurse Practitioner Family; Admitting Provider Internal Medicine; Emergency Provider Nurse Practitioner Family; PCP Family Medicine; Visit Provider Internal Medicine
DX: A41.9 Sepsis, unspecified organism (principal); A04.72 Enterocolitis due to Clostridium difficile, not specified as recurrent; L02.416 Cutaneous abscess of left lower limb; L03.116 Cellulitis of left lower limb; I50.32 Chronic diastolic (congestive) heart failure; N17.9 Acute kidney failure, unspecified; S80.812A Abrasion, left lower leg, initial encounter; I11.0 Hypertensive heart disease with heart failure; I87.8 Other specified disorders of veins; E11.40 Type 2 diabetes mellitus with diabetic neuropathy, unspecified; E66.9 Obesity, unspecified; E78.5 Hyperlipidemia, unspecified; N40.0 Benign prostatic hyperplasia without lower urinary tract symptoms; R55 Syncope and collapse; R77.8 Other specified abnormalities of plasma proteins; B95.61 Methicillin susceptible Staphylococcus aureus infection as the cause of diseases classified elsewhere; W19.XXXA Unspecified fall, initial encounter; Z20.822 Contact with and (suspected) exposure to COVID-19; Z87.891 Personal history of nicotine dependence; Z79.82 Long term (current) use of aspirin; Z79.84 Long term (current) use of oral hypoglycemic drugs
CPT/HCPCS: 36415; 70450; 70551; 71045; 72125; 80048; 80053; 80061; 80202; 81001; 82306; 82607; 82746; 82948; 83036; 83605; 83735; 83880; 84145; 84443; 84484; 85025; 85610; 85730; 87070; 87147; 87186; 87205; 87493; 93005; 93306; 93970; 96365; 96366; 96367; 96375; 96376; 97110; 97162; 97166; 97530; 97535; 99285; A9270; C9803; G0378; J0360; J0690; J0692; J1644; J1815; J1940; J3370; J7030; J7050; U0003; U0005

== ENCOUNTER 2022-09-17 13:34 | Outpatient (CLI) | payer MEDICARE, SELFPAY ==
--- NOTE | ~2022-09-17 | US_ITS ---
EXAMINATION: US venous doppler [facility] DATE: 09/17/2022 14:41 INDICATION: Left lower limb pain. TECHNIQUE: Grayscale ultrasound images without and with compression and Doppler ultrasound images of the left lower extremity veins were obtained. COMPARISON: Ultrasound 08/18/2022 FINDINGS: The visualized portions of left common femoral vein, profunda (deep) femoral vein, femoral vein, popl iteal vein, peroneal veins, posterior tibial veins, and greater saphenous vein outflow are patent. Th ere is subcutaneous edema versus small hematoma in the patient's area of concern in left medial calf. IMPRESSION: 1. No deep venous thrombosis. 2. Subcutaneous edema versus small hematoma in the patient's area of concern in medial left calf. Reviewed, dictated and finalized at location A. [employer]
== END 2022-09-17 13:35 | disposition home or self-care (01) ==
PROVIDERS: PCP Family Medicine; Visit Provider Podiatrist Foot & Ankle Surgery
DX: M79.662 Pain in left lower leg (principal)
CPT/HCPCS: 93971

== ENCOUNTER 2023-04-17 15:38 | Outpatient (NON) | payer MEDICARE, SELFPAY ==
[2023-04-17 16:12] LABS: Hematocrit 31.3 % (42.0-52.0); Hemoglobin 10.4 g/dL (14.0-18.0); Mean Corpuscular HGB Conc 33.2 g/dl (32-36); Mean Corpuscular Hemoglobin 28.7 pg (26-34); Mean Corpuscular Volume 86.5 fl (80-100); Mean Platelet Volume 11.9 fl (7.4-10.4); Platelet Count Result 180 k/mm3 (150-375); Red Blood Count 3.62 M/mm3 (4.6-6.20); Red Cell Distribution Width 14.7 % (11.5-14.5)
[2023-04-17 16:19] LABS: Appearance Urine Clear (Clear); Bacteria Urine None Seen /hpf; Bilirubin Urine Negative (Negative); Blood Urine Negative (Negative); Color Urine Yellow (Yellow); Glucose Urine UA 1+ mg/dL (Negative); Ketones Urine Negative (Negative); Leukocyte Esterase Ur Negative LEU/UL (Negative); Nitrate Urine Negative (Negative); Protein Urine 3+ mg/dL (Negative); RBC Urine 0-2 /hpf (0-2); Specific Grav Ur 1.015 (1.001-1.035); Squamous Epithelial Cell Urine None seen /hpf (Few); Urobilinogen Urine 0.2 mg/dL (<2.0); WBC Urine 0-5 /hpf
[2023-04-17 16:20] LABS: Add Urine Microscopic? YES
[2023-04-17 16:22] LABS: Alanine Aminotransferase 27 U/L (6-50); Albumin Level 3.1 g/dL (3.5-5.1); Alkaline Phosphatase 44 U/L (38-126); Anion Gap 8 mmol/L (8-16); Aspartate Amino Transferase 30 U/L (17-59); Bilirubin,Total 0.5 mg/dL (0.2-1.3); Blood Urea Nitrogen 35 mg/dL (9-20); Calcium 8.5 mg/dL (8.4-10.2); Carbon Dioxide 21 mmol/L (22-30); Chloride 108 mmol/L (98-107); Estimated Glomerular Filt Rate 58; Glucose 243 mg/dL (65-110); Potassium 4.6 mmol/L (3.4-5.0); Sodium 137 mmol/L (137-145)
[2023-04-17 17:30] LABS: Hemoglobin A1C 8.5 % (<5.7)
== END 2023-04-17 15:39 | disposition home or self-care (01) ==
PROVIDERS: PCP Family Medicine; Visit Provider Internal Medicine
DX: E11.51 Type 2 diabetes mellitus with diabetic peripheral angiopathy without gangrene (principal); E11.65 Type 2 diabetes mellitus with hyperglycemia; I50.9 Heart failure, unspecified; I11.0 Hypertensive heart disease with heart failure
CPT/HCPCS: 36415; 80053; 81001; 83036; 85027